=== PATIENT | female | born 1940 | race Caucasian/White ===

== ENCOUNTER 2022-03-11 09:15 | Outpatient (CLI) | payer MEDICARE, OTHER, SELFPAY ==
[2022-03-11 10:25] LABS: Anion Gap 9 mmol/L (8-16); Blood Urea Nitrogen 17 mg/dL (7-17); Calcium 9.2 mg/dL (8.4-10.2); Carbon Dioxide 28 mmol/L (22-30); Chloride 103 mmol/L (98-107); Estimated Glomerular Filt Rate 53; Glucose 95 mg/dL (65-110); Potassium 4.3 mmol/L (3.4-5.0); Sodium 140 mmol/L (137-145)
== END 2022-03-11 09:16 | disposition home or self-care (01) ==
LOC: ANHLAB 09:26
PROVIDERS: PCP Family Medicine; Visit Provider Nurse Practitioner Family
DX: Z13.1 Encounter for screening for diabetes mellitus (principal); Z13.29 Encounter for screening for other suspected endocrine disorder
CPT/HCPCS: 36415; 80048

== ENCOUNTER 2022-06-03 11:30 | Outpatient (CLI) | payer MEDICARE, OTHER, SELFPAY ==
[2022-06-03 11:59] LABS: Anion Gap 8 mmol/L (8-16); Blood Urea Nitrogen 19 mg/dL (7-17); Carbon Dioxide 25 mmol/L (22-30); Chloride 104 mmol/L (98-107); Estimated Glomerular Filt Rate 53; Glucose 97 mg/dL (65-110); Potassium 4.1 mmol/L (3.4-5.0); Sodium 137 mmol/L (137-145)
== END 2022-06-03 11:31 | disposition home or self-care (01) ==
PROVIDERS: PCP Family Medicine; Visit Provider Nurse Practitioner Family
DX: N28.9 Disorder of kidney and ureter, unspecified (principal)
CPT/HCPCS: 36415; 80048

== ENCOUNTER 2022-09-09 10:10 | Outpatient (CLI) | payer MEDICARE, OTHER, SELFPAY ==
[2022-09-09 10:57] LABS: Anion Gap 6 mmol/L (8-16); Blood Urea Nitrogen 15 mg/dL (7-17); Carbon Dioxide 29 mmol/L (22-30); Chloride 106 mmol/L (98-107); Estimated Glomerular Filt Rate 48; Glucose 82 mg/dL (65-110); Potassium 4.2 mmol/L (3.4-5.0); Sodium 141 mmol/L (137-145)
== END 2022-09-09 10:11 | disposition home or self-care (01) ==
PROVIDERS: PCP Family Medicine; Visit Provider Nurse Practitioner Family
DX: N28.9 Disorder of kidney and ureter, unspecified (principal)
CPT/HCPCS: 36415; 80048

== ENCOUNTER 2022-12-17 13:27 | Outpatient (CLI) | payer MEDICARE, OTHER, SELFPAY ==
[2022-12-17 13:49] LABS: Anion Gap 5 mmol/L (8-16); Blood Urea Nitrogen 13 mg/dL (7-17); Calcium 9.3 mg/dL (8.4-10.2); Carbon Dioxide 28 mmol/L (22-30); Chloride 102 mmol/L (98-107); Estimated Glomerular Filt Rate 60; Glucose 90 mg/dL (65-110); Potassium 4.1 mmol/L (3.4-5.0); Sodium 135 mmol/L (137-145)
== END 2022-12-17 13:28 | disposition home or self-care (01) ==
PROVIDERS: PCP Family Medicine; Visit Provider Nurse Practitioner Family
DX: N28.9 Disorder of kidney and ureter, unspecified (principal)
CPT/HCPCS: 36415; 80048

== ENCOUNTER 2023-03-21 12:52 | Outpatient (CLI) | payer MEDICARE, OTHER, SELFPAY ==
[2023-03-21 13:35] LABS: Anion Gap 4 mmol/L (8-16); Blood Urea Nitrogen 16 mg/dL (7-17); Carbon Dioxide 27 mmol/L (22-30); Chloride 103 mmol/L (98-107); Estimated Glomerular Filt Rate 60; Glucose 85 mg/dL (65-110); Potassium 4.3 mmol/L (3.4-5.0); Sodium 134 mmol/L (137-145)
== END 2023-03-21 12:53 | disposition home or self-care (01) ==
PROVIDERS: PCP Family Medicine; Visit Provider Nurse Practitioner Family
DX: N28.9 Disorder of kidney and ureter, unspecified (principal)
CPT/HCPCS: 36415; 80048

== ENCOUNTER 2023-05-28 11:46 | Outpatient (CLI) | payer MEDICARE, OTHER, SELFPAY ==
[2023-05-28 12:16] LABS: Anion Gap 9 mmol/L (8-16); Blood Urea Nitrogen 16 mg/dL (7-17); Carbon Dioxide 24 mmol/L (22-30); Chloride 105 mmol/L (98-107); Estimated Glomerular Filt Rate 53; Glucose 75 mg/dL (65-110); Sodium 138 mmol/L (137-145)
== END 2023-05-28 11:47 | disposition home or self-care (01) ==
LOC: ANHLAB 11:48
PROVIDERS: PCP Family Medicine; Visit Provider Nurse Practitioner Family
DX: E87.1 Hypo-osmolality and hyponatremia (principal)
CPT/HCPCS: 36415; 80048

== ENCOUNTER 2023-09-12 11:26 | Outpatient (CLI) | payer MEDICARE, OTHER, SELFPAY ==
--- NOTE | ~2023-09-12 | XR_ITS ---
AP view of the pelvis and AP and lateral views of the left hip Clinical history: Pain Findings: No acute fracture or dislocation is seen. There is severe left hip joint osteoarthritis, joel int space narrowing and moderate disc versus change, mild remodeling of the femoral head. Right hip j oint space is preserved. Soft tissues are unremarkable. Impression: Severe left hip joint osteoarthritis. Reviewed, dictated and finalized at location M. S AND SERVICE SUPERVISOR Impression: Severe left hip joint osteoarthritis.
[2023-09-12 12:07] LABS: Basophils Absolute Auto 0.1 K/mm3 (0.0-0.1); Eosinophils Absolute Auto 0.2 K/mm3 (0-0.3); Eosinophils Percent Auto 4.5 % (0-4.4); Hemoglobin 8.3 g/dL (12.0-15.0); Immature Granulocyte Absolute 0.02 K/mm3 (0.00-0.031); Immature Granulocyte Percent A 0.4 % (0-0.5); Lymphocytes Absolute Auto 1.42 K/mm3 (0.9-3.2); Lymphocytes Percent Auto 27.8 % (18.3-44.2); Mean Corpuscular HGB Conc 28.6 g/dl (32-36); Mean Corpuscular Hemoglobin 22.4 pg (26-34); Mean Corpuscular Volume 78.2 fl (80-100); Mean Platelet Volume 9.6 fl (7.4-10.4); Monocytes Absolute Auto 0.5 K/mm3 (0.1-0.6); Monocytes Percent Auto 10.4 % (2.6-8.5); Neutrophils Absolute Auto 2.9 K/mm3 (1.3-6.7); Neutrophils Percent Auto 55.9 % (45.5-73.1); Platelet Count Result 471 k/mm3 (150-375); Red Blood Count 3.71 M/mm3 (4.2-5.4); Red Cell Distribution Width 17.5 % (11.5-14.5); White Blood Count 5.1 K/mm3 (4.5-10.0)
[2023-09-12 12:17] LABS: Alanine Aminotransferase 17 U/L (6-35); Alkaline Phosphatase 89 U/L (38-126); Anion Gap 7 mmol/L (8-16); Aspartate Amino Transferase 32 U/L (14-36); Bilirubin,Total 0.2 mg/dL (0.2-1.3); Blood Urea Nitrogen 23 mg/dL (7-17); Calcium 9.2 mg/dL (8.4-10.2); Carbon Dioxide 26 mmol/L (22-30); Chloride 105 mmol/L (98-107); Cholesterol 216 mg/dL (0-200); Estimated Glomerular Filt Rate 60; Glucose 97 mg/dL (65-110); HDL Direct 61 mg/dL; Potassium 4.7 mmol/L (3.4-5.0); Sodium 138 mmol/L (137-145); Triglycerides 76 mg/dL (<150)
[2023-09-12 12:28] LABS: LDL Cholesterol Direct 131 mg/dL
== END 2023-09-12 11:27 | disposition home or self-care (01) ==
PROVIDERS: PCP Family Medicine; Visit Provider Physician Assistant Medical
DX: E78.5 Hyperlipidemia, unspecified (principal); E87.1 Hypo-osmolality and hyponatremia; N28.9 Disorder of kidney and ureter, unspecified; Z13.1 Encounter for screening for diabetes mellitus; Z13.29 Encounter for screening for other suspected endocrine disorder; G89.29 Other chronic pain; M16.12 Unilateral primary osteoarthritis, left hip
CPT/HCPCS: 36415; 73502; 80053; 80061; 84443; 85025

== ENCOUNTER 2023-09-16 12:56 | Outpatient (CLI) | payer MEDICARE, OTHER, SELFPAY ==
[2023-09-16 13:52] LABS: Iron 29 ug/dL (37-170); Percent Iron Saturation 7 % (20-50)
== END 2023-09-16 12:57 | disposition home or self-care (01) ==
LOC: ANHLAB 12:57
PROVIDERS: PCP Family Medicine; Visit Provider Physician Assistant Medical
DX: D50.9 Iron deficiency anemia, unspecified (principal)
CPT/HCPCS: 36415; 83540; 83550

== ENCOUNTER 2023-10-10 13:39 | Outpatient (CLI) | payer MEDICARE, OTHER, SELFPAY ==
[2023-10-10 14:54] LABS: Basophils Absolute Auto 0.1 K/mm3 (0.0-0.1); Basophils Percent Auto 1.5 % (0.2-1.2); Eosinophils Absolute Auto 0.2 K/mm3 (0-0.3); Eosinophils Percent Auto 4.8 % (0-4.4); Hematocrit 34.8 % (37.0-47.0); Hemoglobin 10.3 g/dL (12.0-15.0); Immature Granulocyte Absolute 0.01 K/mm3 (0.00-0.031); Immature Granulocyte Percent A 0.2 % (0-0.5); Lymphocytes Absolute Auto 1.55 K/mm3 (0.9-3.2); Mean Corpuscular HGB Conc 29.6 g/dl (32-36); Mean Corpuscular Hemoglobin 26.3 pg (26-34); Mean Platelet Volume 9.8 fl (7.4-10.4); Monocytes Absolute Auto 0.5 K/mm3 (0.1-0.6); Monocytes Percent Auto 11.4 % (2.6-8.5); Neutrophils Absolute Auto 2.2 K/mm3 (1.3-6.7); Neutrophils Percent Auto 48.1 % (45.5-73.1); Platelet Count Result 367 k/mm3 (150-375); Red Blood Count 3.91 M/mm3 (4.2-5.4); Red Cell Distribution Width 25.3 % (11.5-14.5); White Blood Count 4.6 K/mm3 (4.5-10.0)
[2023-10-10 15:10] LABS: Hypochromasia 2+ (NORMAL); Ovalocytes 1+ (NORMAL); Platelet Estimate Adequate (Adequate); Schistocytes None Seen (NORMAL)
[2023-10-10 15:22] LABS: Iron 245 ug/dL (37-170)
[2023-10-10 15:32] LABS: Percent Iron Saturation 68 % (20-50)
== END 2023-10-10 13:40 | disposition home or self-care (01) ==
PROVIDERS: PCP Family Medicine; Visit Provider Physician Assistant Medical
DX: D50.9 Iron deficiency anemia, unspecified (principal)
CPT/HCPCS: 36415; 83540; 83550; 85025

== ENCOUNTER 2023-10-24 11:40 | Outpatient (CLI) | payer MEDICARE, OTHER, SELFPAY ==
[2023-10-24 12:09] LABS: Hemoglobin 12.1 g/dL (12.0-15.0)
--- NOTE | 2023-10-24 12:16 | ECG_ITS ---
Measurements Intervals [place] Rate: 75 P: 20 FL: 128 QRS: -21 QRSD: 98 T: 74 QT: 388 QTc: 434 Interpretive Statements SINUS RHYTHM DELAYED PRECORDIAL R/S TRANSITION NONSPECIFIC ST & T-WAVE ABNORMALITY- LAT/HIGH LAT LEADS BORDERLINE ECG NO PREVIOUS ECG AVAILABLE FOR COMPARISON Electronically Signed On 10-24-2023 12:48:36 JET WORKER by Josh Mustafa D.O.
[2023-10-24 12:27] LABS: Albumin Level 4.4 g/dL (3.5-5.1); Estimated Glomerular Filt Rate 60; Glucose 116 mg/dL (65-110)
== END 2023-10-24 11:41 | disposition home or self-care (01) ==
PROVIDERS: PCP Family Medicine; Visit Provider Orthopaedic Surgery
DX: M16.12 Unilateral primary osteoarthritis, left hip (principal); Z13.1 Encounter for screening for diabetes mellitus; E87.1 Hypo-osmolality and hyponatremia; N28.9 Disorder of kidney and ureter, unspecified
CPT/HCPCS: 36415; 82040; 82565; 82947; 85014; 85018; 93005

== ENCOUNTER 2023-11-26 11:49 | Outpatient (CLI) | payer MEDICARE, OTHER, SELFPAY ==
[2023-11-26 13:18] LABS: Basophils Absolute Auto 0.1 K/mm3 (0.0-0.1); Basophils Percent Auto 0.9 % (0.2-1.2); Eosinophils Absolute Auto 0.1 K/mm3 (0-0.3); Eosinophils Percent Auto 2.3 % (0-4.4); Hematocrit 37.5 % (37.0-47.0); Hemoglobin 11.6 g/dL (12.0-15.0); Immature Granulocyte Absolute 0.02 K/mm3 (0.00-0.031); Immature Granulocyte Percent A 0.4 % (0-0.5); Lymphocytes Absolute Auto 1.51 K/mm3 (0.9-3.2); Lymphocytes Percent Auto 26.8 % (18.3-44.2); Mean Corpuscular HGB Conc 30.9 g/dl (32-36); Mean Corpuscular Hemoglobin 29.2 pg (26-34); Mean Corpuscular Volume 94.5 fl (80-100); Monocytes Absolute Auto 0.5 K/mm3 (0.1-0.6); Monocytes Percent Auto 9.6 % (2.6-8.5); Neutrophils Absolute Auto 3.4 K/mm3 (1.3-6.7); Platelet Count Result 370 k/mm3 (150-375); Red Blood Count 3.97 M/mm3 (4.2-5.4); Red Cell Distribution Width 17.4 % (11.5-14.5); White Blood Count 5.6 K/mm3 (4.5-10.0)
[2023-11-26 13:34] LABS: Urine Cotinine NEGATIVE
[2023-11-26 13:53] LABS: Anion Gap 8 mmol/L (4-12); Blood Urea Nitrogen 17 mg/dL (7-17); Calcium 9.7 mg/dL (8.4-10.2); Carbon Dioxide 26 mmol/L (22-30); Chloride 106 mmol/L (98-107); Estimated Glomerular Filt Rate > 60; Glucose 89 mg/dL (65-110); Potassium 4.2 mmol/L (3.4-5.0); Sodium 140 mmol/L (137-145)
[2023-11-26 14:48] LABS: MRSA (PCR) NOT DETECTED (NOT DETECTE)
[2023-11-26 18:57] LABS: Hemoglobin A1C 4.4 % (<5.7)
== END 2023-11-26 11:50 | disposition home or self-care (01) ==
LOC: ANHSURGERY 11:54
PROVIDERS: Anesthesiology; PCP Family Medicine; Visit Provider Orthopaedic Surgery
DX: M16.12 Unilateral primary osteoarthritis, left hip (principal); E11.9 Type 2 diabetes mellitus without complications; Z01.818 Encounter for other preprocedural examination
CPT/HCPCS: 36415; 80048; 80307; 83036; 85025; 87641

== ENCOUNTER 2023-12-18 00:36 | Day surgery (SDC) | payer MEDICARE, OTHER, SELFPAY ==
--- NOTE | 2023-11-26 10:59 | PC.NURSE ---
PRE-OP INSTRUCTIONS, PLEASE READ CAREFULLY Report to the Outpatient Waiting Room, entrance under the green pavilion located off [facility], at time _0600_ on date _12/18/23_. Planned Procedure Time: _0730_. PACK A SMALL OVERNIGHT BAG AND LEAVE IN THE CAR ALONG WITH YOUR WALKER Time changes happen often and if your time is changed the preop area will call you the afternoon before. - You and your visitor will be asked to self-screen and do not enter if you have any COVID symptoms. - A mask is optional within the hospital at this time. -VISITING HOURS 8AM-8PM Patients may have clear liquids (water, carbonated beverages, clear teas, apple juice) until 3 hours prior to surgery (0430 AM) with a maximum of 20 ounces. - No food from midnight until time of surgery Take the following medications with a SIP of water the morning of surgery: _TYLENOL IF NEEDED_ DO NOT STOP ANY OF YOUR OTHER PRESCRIPTION MEDICATIONS PRIOR TO SURGERY ?EXCEPT THE FOLLOWING Medications to discontinue per DR. LARRY - _ASPIRIN & ALEVE 7 DAYS PRIOR TO SURGERY, Date to take last dose 12/10/23 Medications to discontinue per ANESTHESIA - _MULTIVITAMIN 3 DAYS PRIOR TO SURGERY, Date to take last dose 12/14/23_ Please no make-up, nail kyrgyz, hairspray, perfume, deodorant, or body powder the day of surgery. No jewelry (including any body piercings) or valuables the day of surgery, leave them at home. Please take a shower or bath the night before, or the morning of, surgery with an antibacterial soap. Wear comfortable, loose fitting clothing. - Jewelry must be removed prior to entering the operating room. Rings and piercings that are not removed may be cut off. - The hospital will not accept responsibility for valuables. - Please leave all valuables, including medications, at home the day of surgery. If you are going home after surgery, a licensed auto crane driver must drive you home. - NO public transportation without another adult if you receive anesthesia. - We recommend that an adult stay with you for 24 hours following discharge. - We also recommend that you do not drive, make important decision, drink alcoholic beverages, or take any drugs that were not prescribed by your health care provider for at least 24 hours after your discharge time. Follow any additional instructions given to you from your surgeon. If you or anyone in your household have experienced Covid symptoms in the past week, please notify your surgeon or the nurse liaison at the phone number below for possible testing. Instructions given to _PATIENT & SPOUSE_and asked if any additional questions and then verbalized understanding. Patient advised to call surgeon office or pre surgery nurse liaison [phone] if any additional questions.
[2023-11-26 12:12] VITALS: BP 174/56; PULSE 68; RESP 16; TEMP 37.1; O2SAT 100; BMI 22.4
--- NOTE | 2023-12-17 12:44 | WPDANESEPPF ---
Anes - Initial Pre Proc Eval Procedure: Operation Date: 12/18/23 07:30 Proposed Procedures p Left Total Hip Arthroplasty - Eugenio Lopez MD Date/Time: 12/17/23 12:44 Surgeon: Eugenio Lopez MD Pre Op Diagnosis: primary oa left hip Patient Data Age: 83 Gender: F Height: 1.57 m Weight: 55.7 kg Last Vital Signs Temp 37.1 C 11/26/23 12:12 Pulse 68 11/26/23 12:12 Resp 16 11/26/23 12:12 BP 174/56 H 11/26/23 12:12 Pulse Ox 100 11/26/23 12:12 O2 Del Method Room Air 11/26/23 12:12 Allergies Allergy/AdvReac Type Severity Reaction Status Date / Time acetaminophen Allergy Hives Verified 12/18/23 06:48 [From Excedrin Migraine] aspirin Allergy Hives Verified 12/18/23 06:48 [From Excedrin Migraine] caffeine Allergy Hives Verified 12/18/23 06:48 [From Excedrin Migraine] Home Medications Medication Instructions Recorded Confirmed Type nolwnvav-tvztuvd-tdgz-lutein tablet 1 tablet PO DAILY #90 tabs 08/27/21 11/26/23 Rx ferrous sulfate 325 mg (65 mg 325 mg PO DAILY #90 tabs 10/11/23 11/26/23 Rx iron) tablet dapagliflozin propanediol 10 mg 10 mg PO QAM #90 tabs 11/04/23 11/26/23 Rx tablet (Farxiga) omeprazole magnesium 20 mg 20 mg PO DAILY #90 tabs 11/04/23 11/26/23 Rx tablet,delayed release (Prilosec OTC) acetaminophen 500 mg tablet 1,000 mg PO Q6H PRN Pain 11/26/23 11/26/23 History aspirin 81 mg capsule 81 mg PO DAILY 11/26/23 11/26/23 History naproxen sodium 220 mg tablet 220 mg PO BID PRN Pain 11/26/23 11/26/23 History (Aleve) zinc 50 mg tablet 50 mg PO DAILY 11/26/23 11/26/23 History Patient hx anesthesia problems: none Family hx anesthesia problems: none Results Review: All pre-operative results and documents have been reviewed as part of the pre-operative evaluation. [facility] Past Medical History Medical History (Updated 12/18/23 @ 06:48 by Matt Daniels DO) Cataract (lens) fragments in eye following cataract surgery, bilateral Colon cancer (~1997) GERD (gastroesophageal reflux disease) Kidney disease Surgical History Surgical History History of appendectomy (~1996) History of dilatation and curettage (~1977) Family History Family History Mother Aneurysm Father , drowning No problems noted. Sibling Metastatic bone cancer Social History Social History Smoking status: Never smoker Second hand tobacco smoke exposure: No Additional smoking assessment comments: PT DENIES ALL FORMS OF TOBACCO USE Alcohol intake: never Substance use: never Substance use type: does not use Do You Feel Safe in your Home?: Yes Lack of Transportation: No Lack of Food: Never True Current Housing: I Have Housing Concerned About Future Housing: No Difficulty Paying Gas/Electric Bills: No Difficulty Paying for Meds: No Currently Unemployed: No Education: High School Diploma/GED Difficulty w/ Childcare or Family Care: No Living arrangements: with family Occupation/Education: retired Gender identity (if verbalized by the patient): Female Sexual Orientation (if Verbalized by the Patient): Straight or Heterosexual Spiritual care concerns: No Agree to blood products: Yes Anes - Eval Final PreProcedure Day of Procedure 12/17/23 12:44 Patient weight: normal Heart: regular rate and rhythm Lungs: clear to auscultation and normal air movement Airway: Mallampati scale class II Neurological: alert and oriented Last oral intake: >/= 8 hours ASA classification: II Emergent: no Anesthetic plan: proceed Anesthesia type and monitoring: general ETT and standard monitoring Results Review: All pre-operative results and documents have been reviewed as part of the pre-operative evaluation. Inform
[2023-12-18] VITALS (12 sets, daily range): BP systolic 119–194; BP diastolic 46–71; PULSE 62–74; RESP 8–20; TEMP 36.2–37.1; O2SAT 98–100
--- NOTE | ~2023-12-18 | XR_ITS ---
EXAMINATION: XR hip LT min 2V DATE: 12/18/2023 09:37 INDICATION: Left total hip arthroplasty TECHNIQUE: 2 views left hip FINDINGS: There is a left total hip arthroplasty in expected position. Subcutaneous gas with soft ti ssue swelling are consistent with recent surgery. IMPRESSION: 1. Recent left total hip arthroplasty. Reviewed, dictated and finalized at location B.
[2023-12-18] MEDS: ACETAMINOPHEN 500 MG TABLET 1000 MG PO (07:00)
[2023-12-18] MEDS: LACTATED RINGERS 1,000 ML 30 ML IV CONT (07:00)
[2023-12-18] MEDS: TRANEXAMIC ACID 1,000MG/ISO100 1,000 MG/100 ML BAG 200 MG IVPB (07:00)
--- NOTE | 2023-12-18 07:04 | WPDHPUPDATE1 ---
History and Physical Update Update Date/Time: 12/18/23 07:04 History and Physical has been reviewed, including an updated exam of the patient. There are NO changes in the patient's condition. Risks, benefits, and alternatives have been discussed and questions answered. Patient agrees to proceed with procedure.
[2023-12-18] MEDS: ceFAZolin 2 GM/D5W 50 ML 2 GM/50 ML BAG IVPB ×3 (07:24→23:14)
[2023-12-18] MEDS: SODIUM CHLORIDE 0.9% IV 37.7 ML, MORPHINE SULFATE INJ (*CRX) 2 MG, ROPivacaine HCL 1% 2... INFILTRATE (08:03)
--- NOTE | 2023-12-18 09:28 | W.PM.PROC2 ---
Procedure Note - Detailed Date of Procedure 12/18/23 Pre-op Diagnosis primary oa left hip Post-op Diagnosis Same Procedure Performed Left Total Hip Arthroplasty Surgeon Eugenio Lopez MD Eligibility Examiner Trinity Addison PA-C Anesthesia General Findings Small stature. Satisfactory bone quality. Description of Procedure The patient was given preoperative antibiotics. A general anesthetic was administered. The patient was carefully placed in the lateral decubitus position on the PEG board. The shoulders and hips were carefully positioned for component and leg length positioning reference. The hip was prepped and draped in the usual sterile fashion. A longitudinal incision was created over the posterior aspect of the greater trochanter. Careful dissection was brought down through the deep fascia with electrocautery. A minimally invasive optimized posterior approach to the hip was performed. The short external rotators and capsule were taken down in an L-shaped capsulotomy. The tissue was tagged for later repair using number 2 high strength suture. The femoral neck was measured and taken in situ. The femoral head was removed. The acetabulum was carefully exposed. The inferior capsule was released. The labrum was resected. The acetabulum was sequentially reamed to the intended cup size. The cup was impacted into position with excellent press-fit. Typical anatomic landmarks, including the bony contact points as well as the inferior transverse acetabular ligament were used to confirm cup positioning with preoperative templating. Attention was turned to the femur, which was carefully exposed. The hip was reamed and then broached sequentially. Excellent press-fit was obtained with the broach. The hip was trialed. Measurements were utilized, including the lesser trochanter as well as the center of the femoral head and the tip of the trochanter, and excellent assessment of the offset and leg lengths were confirmed. The real component was impacted into position. Trialing confirmed appropriate leg length and offset with soft tissue balancing as well apparent feel of the leg, both at the knee and the heel. Soft tissues were assessed using the the iliotibial band. Reduction of the posterior capsule and external rotators were also used as a secondary assessment. The hip was copiously irrigated with pulsatile lavage periodically throughout the procedure. The real components were then assembled and reduced. The hip was stable throughout typical maneuvers, including extension, external rotation to 70 degrees, the position of sleep as well as flexion to 90 degrees with internal rotation past 35 degrees. The shake test confirmed stability without impingement. Osteophytes were removed as necessary. The short external rotators and capsule were repaired back to the posterior trochanter through drill holes. The deep fascia was repaired with running number 2 barbed suture, followed by 2-0 Stratafix suture and 3-0 Stratafix suture in the dermis. Steri-Strips were placed on the skin, followed by a sterile occlusive dressing. There were no complications. Meticulous hemostasis was maintained with the AquaMantys device. The patient was brought to the recovery room in stable condition. There were no complications. Physician hotel assistant manager, Trinity Addison PA-C, required for surgery; including patient positioning, draping, tissue retraction, maintaining instrument position, hip dislocation/ relocation, wound closure, and dressing placement. Implants The Accolade II hip stem, 127 degree size 3 , was utilized with excellent press-fit. The 46 mm Trident II acetabular component was impacted with excellent press-fit stability. Standard polyethylene liner the +4, 32 mm Biolox ceramic femoral head was utilized. Estimated Blood Loss 200 Drains No Packing No Pathology None sent Complications No immediate complications Condition Stable Disposition PACU [facility] Surge
[2023-12-18 09:34] LABS: Glucose Point of Care 118 mg/dl (65-105)
[2023-12-18] MEDS: fentaNYL CITRATE INJ (*CRX) 100 MCG/2 ML VIAL 25 MCG IV PUSH ×4 (10:15→10:29)
[2023-12-18] MEDS: oxyCODONE HCL (*CRX) 2.5 MG TAB IR PO (13:34)
[2023-12-18] MEDS: ACETAMINOPHEN 325 MG TABLET 650 MG PO ×3 (13:34→23:14)
--- NOTE | 2023-12-18 14:17 | PC.NURSE ---
This patient, Maryjane Menchaca, was admitted to Medical Room 343-01. Patient/family oriented to hospital policies and general routines including ID bracelet, bed and alarms, visiting hours, pain management, procedures, bathroom and other care routines, personal items, smoking policy, room service/diet, and visiting hours. Information on how to activate the Rapid Response Team has been discussed. Patient/Family are encouraged to report perceived risks to care and to ask questions if they do not understand what they are told or what they should do.
[2023-12-18] MEDS: SENNA/DOCUSATE SODIUM TABLET 2 TAB PO (17:05)
[2023-12-18] MEDS: oxyCODONE HCL (*CRX) 5 MG TAB IR PO (20:27)
[2023-12-18] MEDS: ASPIRIN 81 MG ENTERIC TABLET PO (20:27)
[2023-12-18] MEDS: SODIUM CHLORIDE 0.9% IV 250 ML 20 ML (23:13)
[2023-12-19 00:22] VITALS: BP 142/54; PULSE 72; RESP 20; TEMP 36.3; O2SAT 98
[2023-12-19 05:31] LABS: Basophils Percent Auto 0.4 % (0.2-1.2); Eosinophils Absolute Auto 0.1 K/mm3 (0-0.3); Eosinophils Percent Auto 0.9 % (0-4.4); Hematocrit 32.3 % (37.0-47.0); Hemoglobin 10.1 g/dL (12.0-15.0); Immature Granulocyte Absolute 0.03 K/mm3 (0.00-0.031); Immature Granulocyte Percent A 0.4 % (0-0.5); Lymphocytes Absolute Auto 0.98 K/mm3 (0.9-3.2); Lymphocytes Percent Auto 13.1 % (18.3-44.2); Mean Corpuscular HGB Conc 31.3 g/dl (32-36); Mean Corpuscular Volume 95.8 fl (80-100); Mean Platelet Volume 8.6 fl (7.4-10.4); Monocytes Absolute Auto 0.7 K/mm3 (0.1-0.6); Monocytes Percent Auto 9.6 % (2.6-8.5); Neutrophils Absolute Auto 5.6 K/mm3 (1.3-6.7); Neutrophils Percent Auto 75.6 % (45.5-73.1); Platelet Count Result 276 k/mm3 (150-375); Red Blood Count 3.37 M/mm3 (4.2-5.4); Red Cell Distribution Width 14.5 % (11.5-14.5); White Blood Count 7.5 K/mm3 (4.5-10.0)
[2023-12-19 05:40] VITALS: BP 133/52; PULSE 70; RESP 18; TEMP 36.7; O2SAT 97
[2023-12-19 05:45] LABS: Anion Gap 3 mmol/L (4-12); Blood Urea Nitrogen 22 mg/dL (7-17); Calcium 9.1 mg/dL (8.4-10.2); Carbon Dioxide 25 mmol/L (22-30); Chloride 109 mmol/L (98-107); Estimated CRCL calculation 30 ml/min; Estimated Glomerular Filt Rate 53; Glucose 104 mg/dL (65-110); Potassium 3.7 mmol/L (3.4-5.0); Sodium 137 mmol/L (137-145)
--- NOTE | 2023-12-19 07:17 | P.PNAN_ITS ---
Anes - Prog Note Post-Op Date/Time: 12/19/23 07:17 Cardiovascular status: normal Respiratory status: normal Airway patency: baseline Mental status: baseline Post-Op hydration status: normal Vital Signs: Last Vital Signs Temp 97.4 F L 12/19/23 00:22 Pulse 72 12/19/23 00:22 Resp 20 12/19/23 00:22 BP 142/54 H 12/19/23 00:22 Pulse Ox 98 12/19/23 00:22 O2 Del Method Room Air 12/18/23 13:28 O2 Flow Rate 6 12/18/23 09:55 Pain Score (VAS): 3 I/O: Intake & Output 12/18/23 12/18/23 12/19/23 15:59 23:59 07:59 Intake Total 100 790 Balance 100 790 Laboratory Tests 12/19/23 05:22 12/19/23 05:22 12/18/23 12/19/23 09:30 05:22 WBC 7.5 RBC 3.37 L Hgb 10.1 L Hct 32.3 L MCV 95.8 MCH 30.0 MCHC 31.3 L RDW 14.5 Plt Count 276 MPV 8.6 Immature Gran % (Auto) 0.4 Neut % (Auto) 75.6 H Lymph % (Auto) 13.1 L [place] % (Auto) 9.6 H Eos % (Auto) 0.9 Baso % (Auto) 0.4 Lymph # (Auto) 0.98 [place] # (Auto) 0.7 H Eos # (Auto) 0.1 Baso # (Auto) 0.0 Abs Immat Gran (auto) 0.03 Absolute Neuts (auto) 5.6 Absolute Nucleated RBC 0.000 Nucleated RBC % 0.0 Sodium 137 Potassium 3.7 Chloride 109 H Carbon Dioxide 25 Anion Gap 3 L BUN 22 H Creatinine 1.00 Estim Creat Clear Calc 30 Estimated GFR 53 L Glucose 104 POC Capillary Glucose 118 H Calcium 9.1 Post-procedural complaints: none Patient Feedback: Patient satisfied with anesthetic care.
[2023-12-19 08:22] VITALS: BP 128/50; PULSE 75; RESP 18; TEMP 36.8; O2SAT 98
[2023-12-19] MEDS: ceFAZolin 2 GM/D5W 50 ML 2 GM/50 ML BAG IVPB (08:23)
[2023-12-19] MEDS: SENNA/DOCUSATE SODIUM TABLET 2 TAB PO (08:24)
[2023-12-19] MEDS: polyethylene glycoL 3350 17 GM POWD.PACK PO (08:25)
[2023-12-19] MEDS: EMPAGLIFLOZIN 25 MG TABLET PO (08:25)
[2023-12-19] MEDS: PANTOPRAZOLE 40 MG TABLET PO (08:25)
[2023-12-19] MEDS: ASPIRIN 81 MG ENTERIC TABLET PO (08:25)
[2023-12-19] MEDS: FERROUS SULFATE 325 MG TABLET DR PO (08:25)
--- NOTE | 2023-12-19 08:31 | PM.DS ---
DS: Admitting Diagnosis Discharge Date 12/19/23 Admitting Diagnosis Hip arthritis. DS: Discharge Diagnosis Discharge Diagnosis (1) Status post total hip replacement, left: Code(s): Z96.642 - Presence of left artificial hip joint Status: Acute Assessment and Plan: Postop day 1: Total hip arthroplasty. Patient tolerated procedure well. No complications. Pain manageable with pain medication. No numbness or tingling. We had a lengthy discussion regarding postoperative wound care, limitations, expectations, and exercises. Patient shows good understanding. Patient has had initial physical therapy and is tolerating it well. DVT prophylaxis: 81 mg baby aspirin b.i.d. for 14 days. Short frequent walks. Pain medication: Percocet. Patient has followup appointment with Dr. Lopez in 3 weeks DS: Summary Hospital Course Reason for hospitalization: Total hip arthroplasty Hospital Course: Patient tolerated procedure well. Has had initial PT/OT. Status at Discharge Functional status at discharge: uses cane/walker Overall status at discharge: patient is progressing back to baseline Time Spent with Patient Time attestation: Total time spent providing and/or coordinating discharge services: Exam Narrative: Thin 83 y/o female. Resting comfortably in chair. Wearing compression socks bilaterally. Dressing dry and intact with no drainage. Mild swelling. No ecchymosis. No erythema. No hematoma. Range of motion limited due to pain. Calf nontender. Thigh nontender. Neurologic status intact. No varicosities. Distal pulses palpable. DS: Data Data Completed and Pending Labs on day of discharge: Labs from last 24 hours 12/19/23 12/18/23 05:22 09:30 WBC 7.5 RBC 3.37 L Hgb 10.1 L Hct 32.3 L MCV 95.8 MCH 30.0 MCHC 31.3 L RDW 14.5 Plt Count 276 MPV 8.6 Immature Gran % (Auto) 0.4 Neut % (Auto) 75.6 H Lymph % (Auto) 13.1 L [place] % (Auto) 9.6 H Eos % (Auto) 0.9 Baso % (Auto) 0.4 Lymph # (Auto) 0.98 [place] # (Auto) 0.7 H Eos # (Auto) 0.1 Baso # (Auto) 0.0 Abs Immat Gran (auto) 0.03 Absolute Neuts (auto) 5.6 Absolute Nucleated RBC 0.000 Nucleated RBC % 0.0 Sodium 137 Potassium 3.7 Chloride 109 H Carbon Dioxide 25 Anion Gap 3 L BUN 22 H Creatinine 1.00 Estim Creat Clear Calc 30 Estimated GFR 53 L Glucose 104 POC Capillary Glucose 118 H Calcium 9.1 Discharge Plan Discharge Patient Disposition: Home, Self-Care Discharge Instructions: See green instruction sheets Stand Alone Forms: General Discharge Instructions Follow-up/Referrals: Trinity Addison PA [Physician Loan Services Professional] - Discharge Medications: New aspirin 81 mg tablet,delayed release (DR/EC) 81 mg PO BID 14 Days Qty: 28 0RF oxycodone-acetaminophen 5-325 mg tablet 1 - 2 tablet PO Q4-6H MDD 6 PRN (Reason: pain) Qty: 30 0RF Continued rwuwpovj-olyqgpg-gqgn-lutein Tablet 1 tablet PO DAILY Qty: 90 3RF zinc 50 mg Tablet 50 mg PO DAILY aspirin 81 mg Capsule 81 mg PO DAILY ferrous sulfate 325 mg (65 mg iron) tablet 325 mg PO DAILY Qty: 90 2RF Farxiga 10 mg tablet 10 mg PO QAM Qty: 90 3RF omeprazole magnesium [Prilosec OTC] 20 mg tablet,delayed release (DR/EC) 20 mg PO DAILY Qty: 90 3RF Held acetaminophen 500 mg Tablet 1,000 mg PO Q6H PRN (Reason: Pain) Hold Instructions: Resume on 01/01/24. No more than 3,000 mg in 24 hours. Pain meds have 325 mg in each pill. naproxen sodium [Aleve] 220 mg Tablet 220 mg PO BID PRN (Reason: Pain) Hold Instructions: Resume on 01/15/24. Hold while taking Meloxicam.
== END 2023-12-19 11:04 | disposition home or self-care (01) ==
LOC: ANHSURGERY 07:26 → ANH3MED 10:44
PROVIDERS: Physician Assistant Surgical; PCP Family Medicine; Visit Provider Orthopaedic Surgery
PROC: (CPT 27130; principal; 2023-12-18 07:30)
DX: M16.12 Unilateral primary osteoarthritis, left hip (principal); K21.9 Gastro-esophageal reflux disease without esophagitis; Z85.038 Personal history of other malignant neoplasm of large intestine; Z79.84 Long term (current) use of oral hypoglycemic drugs; Z79.82 Long term (current) use of aspirin
CPT/HCPCS: 27130; 36415; 73502; 80048; 82948; 85025; 86850; 86900; 86901; 97110; 97161; 97165; 97535; A9270; C1776; J0171; J0690; J1170; J1885; J2250; J2270; J2795; J3010; J7050; J7120

== ENCOUNTER 2023-12-24 17:43 | Inpatient (IN) | payer MEDICARE, OTHER, SELFPAY ==
--- NOTE | ~2023-12-24 | CT_ITS ---
EXAMINATION: CT abdomen pelvis w con DATE: 12/24/2023 20:35 INDICATION: Small bowel obstruction versus impaction TECHNIQUE: Computed tomography (CT) of the abdomen and pelvis was performed with 100 mL Omnipaque-350 intravenous contrast. Automated exposure control and iterative reconstruction technique were employe d. The dose-length product was 194.95 mGy-cm. COMPARISON: None FINDINGS: Calcified right lower lobe nodules consistent with old granulomatous disease. Heart size normal. Athe rosclerotic coronary artery calcification. No pericardial or pleural effusion. Small sliding-type hia everardo hernia. Liver, gallbladder, spleen, pancreas, bilateral adrenal glands and right kidney are dorothy l. Subcentimeter low-attenuation left renal cyst. Multiple dilated loops of small bowel measuring up to 3.7 cm in maximal diameter which extend to a transition point to decompressed distal ileum at the right anterior inferior pelvis. Prior bowel surgery with anastomotic suture line at the rectosigmoid junction. Bladder is normal. The uterus is not identified and has likely been surgically resected. Mi nimal either reactive or physiologic free fluid in the cul-de-sac. No abscess or free intraperitoneal gas. No pathologically enlarged abdominal or pelvic lymphadenopathy. Left total hip arthroplasty. Mi ld lumbar levocurvature with severe spondylosis. IMPRESSION: 1. Small bowel obstruction with transition point at the anteroinferior right pelvis. 2. Small sliding-type hiatal hernia. Reviewed, dictated and finalized at location A. IMPRESSION: 1. Small bowel obstruction with transition point at the anteroinferior right pe lvis. 2. Small sliding-type hiatal hernia.
--- NOTE | ~2023-12-24 | XR_ITS ---
EXAMINATION: XR abdomen gastric tube insert DATE: 12/24/2023 21:50 INDICATION: Nasogastric tube placement TECHNIQUE: A supine view of the abdomen and lower chest was obtained for evaluation of feeding tube placement. COMPARISON: CT dated 12/24/23 FINDINGS: Nasogastric tube tip in the body of the stomach with proximal side-port near the gastroesophageal agustin ction. Mildly dilated loops of small bowel in the left abdomen consistent with bowel obstruction seen on prior CT. There is some excreted contrast in bilateral renal collecting systems and ureters from the prior contrast enhanced CT. Visualized bilateral mid and lower lungs are clear. Heart size is nor mal. IMPRESSION: 1. Nasogastric tube tip in the body of the stomach. Consider advancement by [address] the proximal s neva-port below level of the gastroesophageal junction. Reviewed, dictated and finalized at location A. IMPRESSION: 1. Nasogastric tube tip in the body of the stomach. Consider advancement by [address] the proximal side-port below level of the gastroesophageal junction.
--- NOTE | ~2023-12-24 | XR_ITS ---
EXAMINATION: XR sm bowel follow through DATE: 12/25/2023 11:10 INDICATION: Small bowel obstruction. TECHNIQUE: Oral contrast was administered, and a time course of radiographs of the abdomen was obtain ed. Fluoroscopy of the small bowel was not performed. Fluoroscopy exposure time was 0 minutes. The to everardo number of images was 5. COMPARISON: CT abdomen and pelvis 12/24/2023 FINDINGS: The nasogastric tube tip is in the stomach. There are multiple dilated loops of small bowel. The dist al small bowel is decompressed. Transit time from the stomach to proximal colon was approximately 45 minutes. There is a total left hip arthroplasty. IMPRESSION: 1. Partial small bowel obstruction. Reviewed, dictated and finalized at location A.
[2023-12-24 17:48] VITALS: BP 142/61; PULSE 79; RESP 14; TEMP 36.1; O2SAT 100
--- NOTE | 2023-12-24 19:21 | ECG_ITS ---
SEE SCANNED COPY FOR CONFIRMED REPORT MTDD
[2023-12-24] MEDS: SODIUM CHLORIDE 0.9% IV 2,000 ML 999 ML IV CONT (19:34)
[2023-12-24] MEDS: ONDANSETRON INJ 4 MG/2 ML VIAL IV PUSH (19:35)
[2023-12-24 19:48] VITALS: BP 138/61; PULSE 80; RESP 16; O2SAT 100
[2023-12-24 19:50] LABS: Basophils Absolute Auto 0.1 K/mm3 (0.0-0.1); Basophils Percent Auto 0.5 % (0.2-1.2); Eosinophils Percent Auto 0.3 % (0-4.4); Hematocrit 38.2 % (37.0-47.0); Hemoglobin 12.5 g/dL (12.0-15.0); Immature Granulocyte Absolute 0.07 K/mm3 (0.00-0.031); Immature Granulocyte Percent A 0.8 % (0-0.5); Lymphocytes Absolute Auto 1.02 K/mm3 (0.9-3.2); Lymphocytes Percent Auto 11.2 % (18.3-44.2); Mean Corpuscular HGB Conc 32.7 g/dl (32-36); Mean Corpuscular Hemoglobin 30.3 pg (26-34); Mean Corpuscular Volume 92.7 fl (80-100); Mean Platelet Volume 9.1 fl (7.4-10.4); Monocytes Absolute Auto 0.8 K/mm3 (0.1-0.6); Monocytes Percent Auto 9.1 % (2.6-8.5); Neutrophils Absolute Auto 7.1 K/mm3 (1.3-6.7); Neutrophils Percent Auto 78.1 % (45.5-73.1); Platelet Count Result 504 k/mm3 (150-375); Red Blood Count 4.12 M/mm3 (4.2-5.4); Red Cell Distribution Width 13.5 % (11.5-14.5); White Blood Count 9.1 K/mm3 (4.5-10.0)
[2023-12-24 20:00] LABS: Alanine Aminotransferase 103 U/L (6-35); Albumin Level 4.7 g/dL (3.5-5.1); Alkaline Phosphatase 142 U/L (38-126); Anion Gap 20 mmol/L (4-12); Aspartate Amino Transferase 122 U/L (14-36); Bilirubin,Total 0.7 mg/dL (0.2-1.3); Blood Urea Nitrogen 28 mg/dL (7-17); Calcium 10.3 mg/dL (8.4-10.2); Carbon Dioxide 17 mmol/L (22-30); Chloride 101 mmol/L (98-107); Estimated CRCL calculation 35 ml/min; Estimated Glomerular Filt Rate 60; Glucose 140 mg/dL (65-110); Lipase 93 U/L (23-300); Potassium 3.7 mmol/L (3.4-5.0); Sodium 138 mmol/L (137-145)
[2023-12-24 20:00] LABS: Lactic Acid Reflex 2.5 mmol/L (0.7-2.0)
[2023-12-24 20:24] LABS: Appearance Urine Clear (Clear); Bacteria Urine None Seen /hpf; Bilirubin Urine Negative (Negative); Blood Urine Negative (Negative); Color Urine Yellow (Yellow); Glucose Urine UA 3+ mg/dL (Negative); Ketones Urine 3+ mg/dL (Negative); Leukocyte Esterase Ur Negative LEU/UL (Negative); Need Manual Microscopic Reviewed; Nitrate Urine Negative (Negative); Protein Urine 1+ mg/dL (Negative); RBC Urine 0-2 /hpf (0-2); Squamous Epithelial Cell Urine Occasional /hpf (Few); WBC Urine 0-5 /hpf (0-3)
[2023-12-24 20:25] LABS: Add Urine Microscopic? YES; Specific Grav Ur 1.034 (1.001-1.035)
--- NOTE | 2023-12-24 20:41 | PC.NURSE ---
Pt states nausea has resolved after medication administration.
--- NOTE | 2023-12-24 21:14 | ED.GENADULT ---
HPI - General Adult General Chief complaint: Abdominal Pain Stated complaint: conspitated since last friday Time Seen by Provider: 12/24/23 19:04 History of Present Illness HPI narrative: This is an 83-year-old female on pod 6 a left total hip replacement performed by Dr. Lopez. She has not had a bowel movement since procedure. Two days ago she has gas. She has persistent nausea vomiting abdominal distension and abdominal pain. No fevers chills chest pain or urinary symptoms. Patient tried Fleet enema earlier today with no success. She also tried senna but could not keep it down without vomiting. Related Data Home Medications Medication Instructions Recorded Confirmed acetaminophen 500 mg tablet 1,000 mg PO Q6H PRN Pain 11/26/23 11/26/23 aspirin 81 mg capsule 81 mg PO DAILY 11/26/23 11/26/23 naproxen sodium 220 mg tablet 220 mg PO BID PRN Pain 11/26/23 11/26/23 (Aleve) zinc 50 mg tablet 50 mg PO DAILY 11/26/23 11/26/23 Allergies Allergy/AdvReac Type Severity Reaction Status Date / Time acetaminophen Allergy Mild Hives Verified 12/18/23 07:40 [From Excedrin Migraine] aspirin Allergy Mild Hives Verified 12/18/23 07:40 [From Excedrin Migraine] caffeine Allergy Mild Hives Verified 12/18/23 07:40 [From Excedrin Migraine] PMFSH Past Medical History Medical History Cataract (lens) fragments in eye following cataract surgery, bilateral Colon cancer (~1997) GERD (gastroesophageal reflux disease) Kidney disease Surgical History Surgical History History of appendectomy (~1996) History of dilatation and curettage (~1977) Family History Family History Mother Aneurysm Father , drowning No problems noted. Sibling Metastatic bone cancer Social History Social History Smoking status: Never smoker Second hand tobacco smoke exposure: No Additional smoking assessment comments: PT DENIES ALL FORMS OF TOBACCO USE Alcohol intake: never Substance use: never Substance use type: does not use Do You Feel Safe in your Home?: Yes Lack of Transportation: No Lack of Food: Never True Current Housing: I Have Housing Concerned About Future Housing: No Difficulty Paying Gas/Electric Bills: No Difficulty Paying for Meds: No Currently Unemployed: No Education: High School Diploma/GED Difficulty w/ Childcare or Family Care: No Living arrangements: with family Occupation/Education: retired Gender identity (if verbalized by the patient): Female Sexual Orientation (if Verbalized by the Patient): Straight or Heterosexual Spiritual care concerns: No Agree to blood products: Yes Exam Narrative: APPEARANCE: No apparent distress. Head: atraumatic. EYES: EOMI, NOSE: Atraumatic NECK: Trachea midline RESPIRATORY: No increased rate of breathing CTAB CARDIOVASCULAR: RRR, ABDOMINAL: Abdomen is mildly distended/tender, no guarding or rebound MUSCULOSKELETAl: No obvious deformities NEURO: Alert. Moving 4/4 extremities SKIN:: Warm, dry. Normal color PSYCHIATRIC: Normal affect Course Vital Signs Vital signs: Vital Signs Temperature 96.9 F L 12/24/23 17:48 Pulse Rate 79 12/24/23 17:48 Respiratory Rate 14 12/24/23 17:48 Blood Pressure 142/61 H 12/24/23 17:48 Pulse Oximetry 100 12/24/23 17:48 Temperature 96.9 F L 12/24/23 17:48 Pulse Rate 80 12/24/23 19:48 Respiratory Rate 16 12/24/23 19:48 Blood Pressure 138/61 12/24/23 19:48 Pulse Oximetry 100 12/24/23 19:48 Medical Decision Making [facility] Narrative Medical decision making narrative: -Course: 83-year-old pod 6 from total hip replacement with abdominal pain, distension/vomiting. CT abdomen pelvis showed a small bowel
[2023-12-24] MEDS: PANTOPRAZOLE SODIUM IV 40 MG VIAL IV PUSH (21:57)
[2023-12-24] MEDS: KCL 20 MEQ/SW 100 ML 100 ML 50 MEQ IVPB (22:03)
[2023-12-24] MEDS: LACTATED RINGERS 1,000 ML 150 ML IV CONT (22:05)
[2023-12-24 22:44] VITALS: BP 158/56; PULSE 94; RESP 16; O2SAT 98
[2023-12-24 22:46] LABS: Reflex Lactic Acid Yes or No Add Lactic
[2023-12-24 23:46] VITALS: BMI 21.9
[2023-12-24 23:49] VITALS: BP 158/59; PULSE 91; RESP 18; TEMP 36.9; O2SAT 99; BMI 22.0
--- NOTE | 2023-12-25 00:04 | PC.NURSE ---
This patient, Maryjane Menchaca, was admitted to 3 Med Surg Room 307-02. Patient/family oriented to hospital policies and general routines including ID bracelet, bed and alarms, visiting hours, pain management, procedures, bathroom and other care routines, personal items, smoking policy, room service/diet, and visiting hours. Information on how to activate the Rapid Response Team has been discussed. Patient/Family are encouraged to report perceived risks to care and to ask questions if they do not understand what they are told or what they should do.
[2023-12-25 01:47] LABS: Lactic Acid 0.8 mmol/L (0.7-2.0)
[2023-12-25 05:25] VITALS: BP 154/60; PULSE 87; RESP 16; TEMP 37; O2SAT 96
--- NOTE | 2023-12-25 07:45 | PM.IMHP ---
H&P: HPI History of Present Illness Date/Time: 12/25/23 07:45 Chief Complaint: Abdominal pain Narrative: This is an 83 year old female with a significant past medical history of colon cancer, GERD, kidney disease, cataracts, appendectomy and who presented to the hospital with abdominal pain, nausea, vomiting, abdominal distention. Patient denies any fever, chills, diarrhea, abdominal pain, chest pain, shortness of breath. She reports that she just had a bowel movement and emesis. She states that she feels like she could have another bowel movement soon. Patient is POD 7 from a Left THR performed by Dr. Lopez and she reports that she has not had a bowel movement since before her surgery. Patient tried a Fleets enema and senna at home but was unsuccessful with both. She continued with worsening symptoms and came to the ED for further evaluation. Work up in the hospital includes an abdomen/pelvis CT which shown small bowel obstruction with transition point at the anteroinferior right pelvis, small sliding-type hiatal hernia. NG tube was inserted. KUB shown NGT in the body of the stomach.Initial labs revealed WBC 9.1, Plt count of 504, Bicarb 17, Anion gap 20 , lactic acid 2.5>0.8, Ca+ 10.3, AST 122, ALT 103, Alk phos 142, lipase 93. UA shown 1+ urine protein, 3+ glucose, 3+ ketones. EKG NSR with rate of 75. Patient received 2L NS, Zofran, Protonix, potassium, and started on LR at 150ml/hr while in the ED. General surgery was consulted and recommends supportive care with NG tube. Review of Systems Review of Systems: All systems reviewed & are unremarkable except as noted in HPI and below Constitutional: Constitutional: Reports as per HPI and Reports no additional constitutional complaints Eyes: Eyes: Reports as per HPI and Reports no additional eye complaints ENT: Reports system reviewed and no additional complaints, except as documented and Reports as per HPI Cardiovascular: Cardiovascular: Reports as per HPI and Reports no additional cardiovascular complaints Respiratory: Respiratory: Reports as per HPI and Reports no additional respiratory complaints Gastrointestinal: Gastrointestinal: Reports as per HPI and Reports no additional gastrointestinal complaints Genitourinary: Genitourinary: Reports no additional female genitourinary complaints and Reports as per HPI Musculoskeletal: Musculoskeletal: Reports no additional musculoskeletal complaints and Reports as per HPI Integumentary/Breasts: Skin/Breast: Reports system reviewed and no additional complaints, except as docu and Reports as per HPI Neurologic: Reports system reviewed and no additional complaints, except as documented and Reports as per HPI Psychiatric: Psychiatric: Reports no additional psychiatric complaints and Reports as per HPI [facility] Past Medical History Medical History Arthritis Cataract (lens) fragments in eye following cataract surgery, bilateral (Unknown) Colon cancer (~1997) Degenerative joint disease of left hip GERD (gastroesophageal reflux disease) Kidney disease Surgical History Surgical History History of appendectomy (~1996) History of dilatation and curettage (~1977) Status post total hip replacement, left Family History Family History Mother Aneurysm Father , drowning No problems noted. Sibling Metastatic bone cancer Social History Social History Smoking status: Never smoker Second hand tobacco smoke exposure: No Additional smoking assessment comments: PT DENIES ALL FORMS OF TOBACCO USE Alcohol intake: never Substance use: never Substance use type: does not use Do You Feel Safe in your Home?: Yes Lack of Transportation: No Lack of Food: Never True Current Housing:
[2023-12-25 08:15] LABS: Basophils Absolute Auto 0.1 K/mm3 (0.0-0.1); Basophils Percent Auto 0.9 % (0.2-1.2); Eosinophils Absolute Auto 0.4 K/mm3 (0-0.3); Eosinophils Percent Auto 5.5 % (0-4.4); Hematocrit 30.6 % (37.0-47.0); Hemoglobin 9.8 g/dL (12.0-15.0); Immature Granulocyte Absolute 0.03 K/mm3 (0.00-0.031); Immature Granulocyte Percent A 0.5 % (0-0.5); Lymphocytes Absolute Auto 0.77 K/mm3 (0.9-3.2); Lymphocytes Percent Auto 12.1 % (18.3-44.2); Mean Corpuscular Hemoglobin 30.2 pg (26-34); Mean Corpuscular Volume 94.4 fl (80-100); Mean Platelet Volume 8.6 fl (7.4-10.4); Monocytes Absolute Auto 0.7 K/mm3 (0.1-0.6); Monocytes Percent Auto 10.8 % (2.6-8.5); Neutrophils Absolute Auto 4.5 K/mm3 (1.3-6.7); Neutrophils Percent Auto 70.2 % (45.5-73.1); Platelet Count Result 344 k/mm3 (150-375); Red Blood Count 3.24 M/mm3 (4.2-5.4); Red Cell Distribution Width 13.4 % (11.5-14.5); White Blood Count 6.4 K/mm3 (4.5-10.0)
[2023-12-25 08:24] LABS: Alanine Aminotransferase 98 U/L (6-35); Albumin Level 3.2 g/dL (3.5-5.1); Alkaline Phosphatase 107 U/L (38-126); Anion Gap 7 mmol/L (4-12); Aspartate Amino Transferase 87 U/L (14-36); Bilirubin,Total 0.5 mg/dL (0.2-1.3); Blood Urea Nitrogen 19 mg/dL (7-17); Calcium 8.5 mg/dL (8.4-10.2); Carbon Dioxide 22 mmol/L (22-30); Chloride 107 mmol/L (98-107); Estimated CRCL calculation 39 ml/min; Estimated Glomerular Filt Rate > 60; Glucose 89 mg/dL (65-110); Magnesium 1.9 mg/dL (1.6-2.3); Potassium 3.9 mmol/L (3.4-5.0); Sodium 136 mmol/L (137-145)
--- NOTE | 2023-12-25 09:07 | PM.CNGS ---
Assessment and Plan Assessment and plan (1) Small bowel obstruction: Code(s): K56.609 - Unspecified intestinal obstruction, unspecified as to partial versus complete obstruction Status: Acute Assessment and Plan: The patient is postop day 7 following a left total hip arthroplasty and presented with abdominal pain and vomiting. CT showed evidence of a small bowel obstruction with transition point in the right pelvis. She does have a history of abdominal surgery with a colon resection over 40 years ago, which could cause some intraabdominal adhesions, but this could also be more of an ileus picture given her recent surgery. She has no peritoneal signs on exam and has started improving clinically with the NG tube. We would recommend continuing NG tube decompression, bowel rest, IV fluids, and analgesics as needed. Will order a water-soluble small bowel follow through to further evaluate the possible small bowel obstruction. (2) Status post total hip replacement, left: Code(s): Z96.642 - Presence of left artificial hip joint Status: Acute (3) Transaminitis: Code(s): R74.01 - Elevation of levels of liver transaminase levels Status: Acute Plan I have discussed the patient's case and plan of care with Dr. Coughlin. Thank you for allowing us to see the patient in consultation and we will continue to follow along with you. History of Present Illness Consult details Consult date: 12/25/23 Reason for consult: other (Possible small bowel obstruction) Requesting physician: Preet Jacobson MD Narrative: This is an 83-year-old woman with a remote history of colon cancer status post colon resection over 40 years ago, who we have been asked to see in surgical consultation for a possible small-bowel obstruction. The patient had a left total hip replacement on 12/18/[address] Lopez. When she was discharged home, she noticed some generalized abdominal pain. She was concerned she was constipated, but did not have the urge to defecate. Been taking MiraLax postoperatively as prescribed by her orthopedic surgeon. She denies ever passing any flatus or having any bowel movements following surgery. Her abdominal pain progressively got worse over the weekend and she developed nausea, bloating, and vomiting. Due to her persistent symptoms, she came into the ER for evaluation yesterday. Labs showed a white blood cell count 9100, serum bicarb 17, BUN 28, creatinine 0.9, lactic acid 2.5 with repeat down to 0.8. AST, ALT, and alk-phos also mildly elevated. UA negative for UTI. CT scan of the abdomen and pelvis showed a small-bowel obstruction with transition point at the anterioinferior right pelvis, small sliding-type hiatal hernia. She was admitted to the hospitalist service. NG tube was placed. She is seen on the medical floor. Review of Systems Review of Systems: All systems reviewed & are unremarkable except as noted in HPI and below PMFSH Past Medical History Medical History Arthritis Cataract (lens) fragments in eye following cataract surgery, bilateral (Unknown) Colon cancer (~1997) Degenerative joint disease of left hip GERD (gastroesophageal reflux disease) Kidney disease Surgical History Surgical History History of appendectomy (~1996) History of dilatation and curettage (~1977) Status post total hip replacement, left Family History Family History Mother Aneurysm Father , drowning No problems noted. Sibling Metastatic bone cancer Social History Social History Smoking status: Never smoker Second hand tobacco smoke exposure: No Additional smoking assessment comments: PT DENIES ALL FORMS OF TOBACCO USE Alcohol intake: never Substance u
--- NOTE | 2023-12-25 11:06 | PCPTNOTE ---
Attempted PT evaluation, pt off the unit for test. Will follow.
[2023-12-25] MEDS: DEXTROSE 5%/LACTATED RINGERS 1,000 ML 100 ML IV CONT ×2 (11:24→21:40)
[2023-12-25] MEDS: ENOXAPARIN 40 MG/0.4 ML SYRINGE SUB-Q (11:28)
--- NOTE | 2023-12-25 12:30 | PM.PNORT ---
Progress Note: A&P Assessment and Plan (1) Status post total hip replacement, left: Code(s): Z96.642 - Presence of left artificial hip joint Status: Acute (2) Small bowel obstruction: Code(s): K56.609 - Unspecified intestinal obstruction, unspecified as to partial versus complete obstruction Status: Acute Plan Pleasant 83 y/o female patient who is 7 days post total hip arthroplasty was admitted to the hospital for a small bowel obstruction. Hip is performing well. Patient was prescribed opioid pain medication after surgery. She states she took it for 2 days. She was taking Senokot-s and Miralax. Patient has a history of abdominal surgery. NG tube in place. Mepilex dressing removed today. Keep steri-strips for 1 week. May shower. Weight bearing as tolerated with a walker. May start PT/OT. Subjective Subjective Date/Time Seen: 12/25/23 12:30 Interval history: Patient was admitted for a bowel obstruction. She is 7 days post total hip arthroplasty. She states the hip itself is doing great and she has little pain. She took pain medication for 2 days. She states she was taking Senokot-s and miralax. She states she used metamucil also. She states she had been throwing up and unable to keep the Senokot-S down. She has abdominal pain. No other complaints. Review of Systems Review of Systems: All systems reviewed & are unremarkable except as noted in HPI and below Exam Narrative: Thin 83 y/o female. Resting comfortably in bed. NG tube in place. Wearing compression socks bilaterally. Dressing dry and intact with no drainage. Mepilex removed today. Wound healing well. Mild swelling. No ecchymosis. No erythema. No hematoma. Range of motion limited due to pain. Calf nontender. Thigh nontender. Neurologic status intact. No varicosities. Distal pulses palpable. Objective Data Vital Signs Vital Signs: Vital Signs - 24 hr 12/24/23 17:48 12/24/23 19:48 12/24/23 22:44 Temperature 96.9 F L Pulse Rate 79 80 94 Respiratory Rate 14 16 16 Blood Pressure 142/61 H 138/61 158/56 H Pulse Oximetry 100 100 98 Oxygen Delivery 12/24/23 23:49 12/25/23 00:25 12/25/23 05:25 Temperature 98.4 F 98.6 F Pulse Rate 91 87 Respiratory Rate 18 16 Blood Pressure 158/59 H 154/60 H Pulse Oximetry 99 96 Oxygen Delivery Room Air Intake/Output Intake/Output: Intake & Output 12/22/23 12/23/23 12/24/23 12/25/23 23:59 23:59 23:59 23:59 Intake Total 1999 1100 Balance 1999 1100 Meds/Results Medications: Active Medications Generic Name Dose Route Start Last Admin Trade Name Freq PRN Reason Stop Dose Admin Enoxaparin Sodium 40 mg 12/25/23 09:00 12/25/23 11:28 Enoxaparin 40 Mg/0.4 Ml Syringe SUB-Q 40 mg DAILY DIETER Administration Dextrose/Lactated Ringer's 1,000 mls @ 100 mls/hr 12/25/23 08:00 12/25/23 11:24 Dextrose 5%/Lactated Ringers IV CONT 100 mls/hr .Q10H DIETER Administration Morphine Sulfate 2 mg 12/25/23 07:56 Morphine Sulfate (*Crx) 2 Mg/Ml Inj IV PUSH Q6H PRN Pain Rated 7-10 Ondansetron HCl 4 mg 12/25/23 07:56 Ondansetron Inj 4 Mg/2 Ml Vial IV PUSH Q6H PRN Nausea And Vomiting Radiology Results: ITS Impressions Abdomen/Pelvis CT 12/24/23 20:37 IMPRESSION: 1. Small bowel obstruction with transition point at the anteroinferior right pelvis. 2. Small sliding-type hiatal hernia. Abdomen X-Ray 12/24/23 21:51 IMPRESSION: 1. Nasogastric tube tip in the body of the stomach. Consider advancement by [address] the proximal side-port below level of the gastroesophageal junction. Small Bowel X-Ray 12/25/23 11:12 IMPRESSION: 1. Partial small bowel obstruction. Labs Labs: Laboratory Results - last 24 hr 12/24/23 12/24/23 12/25/23 19:34 19:39 00:51 WBC 9.1 RBC 4.12 L Hgb 12.5 Hct 38.2 MCV 92.7 MCH 30.3 MCHC 32.7 RDW 13.5 Plt Count 504 H D MPV 9.1 Immature Gran % (Auto)
[2023-12-25 14:00] VITALS: BP 129/64; PULSE 132; RESP 16; TEMP 36.8; O2SAT 98
[2023-12-25 23:32] VITALS: BP 138/50; PULSE 78; RESP 18; TEMP 36.6; O2SAT 98
[2023-12-26 05:31] LABS: Basophils Percent Auto 0.6 % (0.2-1.2); Eosinophils Absolute Auto 0.3 K/mm3 (0-0.3); Eosinophils Percent Auto 6.2 % (0-4.4); Hematocrit 26.8 % (37.0-47.0); Hemoglobin 8.4 g/dL (12.0-15.0); Immature Granulocyte Absolute 0.02 K/mm3 (0.00-0.031); Immature Granulocyte Percent A 0.4 % (0-0.5); Lymphocytes Absolute Auto 0.95 K/mm3 (0.9-3.2); Lymphocytes Percent Auto 18.9 % (18.3-44.2); Mean Corpuscular HGB Conc 31.3 g/dl (32-36); Mean Corpuscular Hemoglobin 30.2 pg (26-34); Mean Corpuscular Volume 96.4 fl (80-100); Mean Platelet Volume 9.1 fl (7.4-10.4); Monocytes Absolute Auto 0.6 K/mm3 (0.1-0.6); Monocytes Percent Auto 12.5 % (2.6-8.5); Neutrophils Absolute Auto 3.1 K/mm3 (1.3-6.7); Neutrophils Percent Auto 61.4 % (45.5-73.1); Platelet Count Result 319 k/mm3 (150-375); Red Blood Count 2.78 M/mm3 (4.2-5.4); Red Cell Distribution Width 13.5 % (11.5-14.5)
[2023-12-26 05:44] LABS: Alanine Aminotransferase 60 U/L (6-35); Albumin Level 2.8 g/dL (3.5-5.1); Alkaline Phosphatase 82 U/L (38-126); Anion Gap 2 mmol/L (4-12); Aspartate Amino Transferase 38 U/L (14-36); Bilirubin,Total 0.3 mg/dL (0.2-1.3); Blood Urea Nitrogen 15 mg/dL (7-17); Calcium 8.5 mg/dL (8.4-10.2); Carbon Dioxide 27 mmol/L (22-30); Chloride 112 mmol/L (98-107); Estimated CRCL calculation 44 ml/min; Estimated Glomerular Filt Rate > 60; Glucose 118 mg/dL (65-110); Sodium 141 mmol/L (137-145)
[2023-12-26] MEDS: DEXTROSE 5%/LACTATED RINGERS 1,000 ML 100 ML IV CONT (06:23)
[2023-12-26 06:42] VITALS: BP 121/53; PULSE 63; RESP 16; TEMP 36.8; O2SAT 97
[2023-12-26] MEDS: ENOXAPARIN 40 MG/0.4 ML SYRINGE SUB-Q (08:43)
--- NOTE | 2023-12-26 11:55 | PM.PNORT ---
Progress Note: A&P Assessment and Plan (1) Status post total hip replacement, left: Code(s): Z96.642 - Presence of left artificial hip joint Status: Acute (2) Small bowel obstruction: Code(s): K56.609 - Unspecified intestinal obstruction, unspecified as to partial versus complete obstruction Status: Acute Plan Pleasant 83 y/o female patient who is 8 days post total hip arthroplasty was admitted to the hospital for a small bowel obstruction. Hip is performing well. Patient is doing much better. She has had multiple bowel movements and the NG tube was removed. She is planning on discharge today. Will continue all prior hip instructions. Limit narcotic pain medication. Subjective Subjective Date/Time Seen: 12/26/23 11:55 Interval history: Patient states she is feeling much better today. Her NG tube was removed yesterday. She has had multiple bowel movements. She was tolerating clear liquids well at the time of my visit. No pain or issues with her hip. Review of Systems Review of Systems: All systems reviewed & are unremarkable except as noted in HPI and below Exam Narrative: Thin 83 y/o female. Resting comfortably in bed. Wearing compression socks bilaterally. Dressing dry and intact with no drainage. Wound healing well. Mild swelling. No ecchymosis. No erythema. No hematoma. Range of motion limited due to pain. Calf nontender. Thigh nontender. Neurologic status intact. No varicosities. Distal pulses palpable. Objective Data Vital Signs Vital Signs: Vital Signs - 24 hr 12/25/23 14:00 12/25/23 20:00 12/25/23 23:32 Temperature 98.2 F 97.8 F Pulse Rate 132 H 78 Respiratory Rate 16 18 Blood Pressure 129/64 138/50 L Pulse Oximetry 98 98 Oxygen Delivery Room Air 12/26/23 06:42 12/26/23 10:25 12/26/23 08:45 Temperature 98.2 F Pulse Rate 63 Respiratory Rate 16 Blood Pressure 121/53 L Pulse Oximetry 97 Oxygen Delivery Room Air Room Air Intake/Output Intake/Output: Intake & Output 12/23/23 12/24/23 12/25/23 12/26/23 23:59 23:59 23:59 23:59 Intake Total 1999 2100 1261.7 Balance 1999 2100 1261.7 Meds/Results Medications: Active Medications Generic Name Dose Route Start Last Admin Trade Name Freq PRN Reason Stop Dose Admin Enoxaparin Sodium 40 mg 12/25/23 09:00 12/26/23 08:43 Enoxaparin 40 Mg/0.4 Ml Syringe SUB-Q 40 mg DAILY DIETER Administration Dextrose/Lactated Ringer's 1,000 mls @ 100 mls/hr 12/25/23 08:00 12/26/23 06:23 Dextrose 5%/Lactated Ringers IV CONT 100 mls/hr .Q10H DIETER Administration Morphine Sulfate 2 mg 12/25/23 07:56 Morphine Sulfate (*Crx) 2 Mg/Ml Inj IV PUSH Q6H PRN Pain Rated 7-10 Ondansetron HCl 4 mg 12/25/23 07:56 Ondansetron Inj 4 Mg/2 Ml Vial IV PUSH Q6H PRN Nausea And Vomiting Radiology Results: ITS Impressions Abdomen/Pelvis CT 12/24/23 20:37 IMPRESSION: 1. Small bowel obstruction with transition point at the anteroinferior right pelvis. 2. Small sliding-type hiatal hernia. Abdomen X-Ray 12/24/23 21:51 IMPRESSION: 1. Nasogastric tube tip in the body of the stomach. Consider advancement by [address] the proximal side-port below level of the gastroesophageal junction. Small Bowel X-Ray 12/25/23 11:12 IMPRESSION: 1. Partial small bowel obstruction. Labs Labs: Laboratory Results - last 24 hr 12/26/23 05:09 WBC 5.0 RBC 2.78 L Hgb 8.4 L Hct 26.8 L MCV 96.4 MCH 30.2 MCHC 31.3 L RDW 13.5 Plt Count 319 MPV 9.1 Immature Gran % (Auto) 0.4 Neut % (Auto) 61.4 Lymph % (Auto) 18.9 [place] % (Auto) 12.5 H Eos % (Auto) 6.2 H Baso % (Auto) 0.6 Lymph # (Auto) 0.95 [place] # (Auto) 0.6 Eos # (Auto) 0.3 Baso # (Auto) 0.0 Abs Immat Gran (auto) 0.02 Absolute Neuts (auto) 3.1 Absolute Nucleated RBC 0.000 Nucleated RBC % 0.0 Sodium 141 Potassium 3.0 L Chloride 112 H Carbon Dioxide 27 Anion Gap 2 L BUN 15 C
--- NOTE | 2023-12-26 14:18 | PM.DS ---
DS: Admitting Diagnosis Discharge Date 12/26/23 Admitting Diagnosis SBO Transaminitis Status post total hip replacement on the left Iron deficiency anemia DS: Discharge Diagnosis Discharge Diagnosis (1) Small bowel obstruction: Code(s): K56.609 - Unspecified intestinal obstruction, unspecified as to partial versus complete obstruction Status: Acute (2) Transaminitis: Code(s): R74.01 - Elevation of levels of liver transaminase levels Status: Acute (3) Status post total hip replacement, left: Code(s): Z96.642 - Presence of left artificial hip joint Status: Acute (4) Iron deficiency anemia: Code(s): D50.9 - Iron deficiency anemia, unspecified Status: Acute DS: Summary Hospital Course Reason for hospitalization: SBO Transaminitis Status post total hip replacement on the left Iron deficiency anemia Hospital Course: 12/25/23: This is an 83 year old female with a significant past medical history of colon cancer, GERD, kidney disease, cataracts, appendectomy and who presented to the hospital with abdominal pain, nausea, vomiting, abdominal distention. Patient denies any fever, chills, diarrhea, abdominal pain, chest pain, shortness of breath. She reports that she just had a bowel movement and emesis. She states that she feels like she could have another bowel movement soon.? Patient is POD 7 from a Left THR performed by Dr. Lopez and she reports that she has not had a bowel movement since before her surgery. Patient tried a Fleets enema and senna at home but was unsuccessful with both. She continued with worsening symptoms and came to the ED for further evaluation. Work up in the hospital includes an abdomen/pelvis CT which shown small bowel obstruction with transition point at the anteroinferior right pelvis, small sliding-type hiatal hernia. NG tube was inserted. KUB shown NGT in the body of the stomach.Initial labs revealed WBC 9.1, Plt count of 504, Bicarb 17, Anion gap 20 , lactic acid 2.5>0.8, Ca+ 10.3, AST 122, ALT 103, Alk phos 142, lipase 93. UA shown 1+ urine protein, 3+ glucose, 3+ ketones. EKG NSR with rate of 75. Patient received 2L NS, Zofran, Protonix, potassium, and started on LR at 150ml/hr while in the ED. General surgery was consulted and recommends supportive care with NG tube. 12/26/23: Patient denies any new complaints today. NG tube was discontinued and patient is tolerating food and fluid. She has had bowel movement and is passing. General surgery has signed off. Labs today reveal a hemoglobin of 8.4, potassium 3.0 which was replaced, otherwise unremarkable. Patient is stable for discharge at this time. She will need to follow up with her primary care physician in about a week and her orthopedic surgeon and about 2 weeks. Final diagnosis: Small-bowel obstruction, transaminitis Status at Discharge Cognitive/behavioral status at discharge: Alert oriented x4 Functional status at discharge: uses cane/walker Overall status at discharge: patient is progressing back to baseline Time Spent with Patient Time attestation: Total time spent providing and/or coordinating discharge services: Time spent: Greater than 30 minutes Exam Narrative: General: In no acute distress, well nourished Head: atraumatic, no encephalopathy Eyes: EOMI, PERRLA, sclera clear ENT: moist mucous membranes, nasal passages clear Neck: supple, no JVD, no adenopathy, trachea midline Cardiac: Normal S1 and S2. RRR. No murmur, gallops or friction rubs, peripheral pulses intact. Respiratory: Lungs clear to auscultation, no adventitious lung sounds, currently on room air Gastrointestinal: soft, non-distended, non-tender, normoactive bowel sounds. She is passing gas and having bowel movements. Nausea, vomiting has resolved : voiding without difficulty. Extremities: moves all extremities well, no edema, good ROM, strength 5/5 Skin: clean, dry, intact. No wounds or lesions. Neuro: Alert and oriented x4,
[2023-12-26] MEDS: POTASSIUM CHLORIDE 20 MEQ ER TABLET 40 MEQ PO (14:22)
== END 2023-12-26 14:40 | disposition home or self-care (01) | DRG 390 ==
LOC: ANHED 21:34 → ANH3MEDSUR 23:22
PROVIDERS: Admitting Provider Internal Medicine; Emergency Provider Emergency Medicine; PCP Family Medicine; Visit Provider Nurse Practitioner Acute Care
DX: K56.609 Unspecified intestinal obstruction, unspecified as to partial versus complete obstruction (principal); Z96.642 Presence of left artificial hip joint; D50.9 Iron deficiency anemia, unspecified; K21.9 Gastro-esophageal reflux disease without esophagitis; K44.9 Diaphragmatic hernia without obstruction or gangrene; R74.01 Elevation of levels of liver transaminase levels; Z90.49 Acquired absence of other specified parts of digestive tract; Z79.82 Long term (current) use of aspirin; Z85.038 Personal history of other malignant neoplasm of large intestine; Z98.41 Cataract extraction status, right eye; Z98.42 Cataract extraction status, left eye
CPT/HCPCS: 36415; 74177; 74250; 80053; 81001; 83605; 83690; 83735; 85025; 93005; 96361; 96374; 96375; 97161; 97165; 97535; 99285; A9270; C9113; J1650; J2405; J3480; J7030; J7120; J7121; Q9967

== ENCOUNTER 2024-01-13 17:49 | Inpatient (IN) | payer MEDICARE, OTHER, SELFPAY ==
--- NOTE | ~2024-01-13 | CT_ITS ---
EXAMINATION: CT abdomen pelvis w con DATE: 01/13/2024 21:50 INDICATION: abdominal pain hx of sbo TECHNIQUE: Computed tomography (CT) of the abdomen and pelvis was performed with 100 mL Omnipaque-350 intravenous contrast. Automated exposure control and iterative reconstruction technique were employe d. The dose-length product was 184.77 mGy-cm. COMPARISON: None. FINDINGS: Lower thorax: Unremarkable Liver: Normal. Biliary/Gallbladder: Gallbladder is normal. No bile duct dilation. Pancreas: No mass or duct dilation. Spleen: Normal. Adrenals:No mass. Kidneys: No suspicious mass, obstructing stone, or hydronephrosis. GI tract: Multiple loops of mildly dilated small bowel, most pronounced in the left abdomen, with int erspersed areas of normal caliber bowel. No definitive transition point. Appendix not confidently vis ualized. Uncomplicated rectosigmoid anastomosis. Mesentery/Peritoneum: No ascites, mass, or free air. Retroperitoneum: No mass. Pelvis: Pelvic organs are within normal limits. Soft Tissues: Soft tissues and body wall unremarkable. Bones: No acute osseous finding. Partially visualized left hip arthroplasty hardware. IMPRESSION: Scattered areas of small bowel dilation may represent ileus or partial obstruction. Reviewed, dictated and finalized at location K. IMPRESSION: Scattered areas of small bowel dilation may represent ileus or partial obstruct ion.
--- NOTE | ~2024-01-13 | XR_ITS ---
EXAM: XR abdomen gastric tube insert DATE: 01/13/2024 23:46 HISTORY: NG placement . COMPARISON: 12/24/2023. FINDINGS: Clear lung bases. NG tube, tip and side port project over the expected location of the sto mach. Contrast within the bilateral renal collecting systems. Known dilated small bowel loops in the prior CT not visualized as they are fluid-filled. Degenerative changes in the spine. IMPRESSION: NG tube, in good position. Reviewed, dictated and finalized at location K. IMPRESSION: NG tube, in good position.
--- NOTE | ~2024-01-13 | XR_ITS ---
EXAMINATION: XR small bowel follow through DATE: 01/14/2024 13:21 INDICATION: Partial small bowel obstruction. TECHNIQUE: Oral contrast was administered, and a time course of radiographs of the abdomen was obtain ed. Fluoroscopy of the small bowel was not performed. Fluoroscopy exposure time was 0 minutes. The to everardo number of images was 4. COMPARISON: Small bowel series 12/25/2023, CT abdomen and pelvis 01/13/2024 FINDINGS: The nasogastric tube tip is in the stomach. There are mildly dilated loops of small bowel. Transit ti me from the stomach to proximal colon was approximately 30 minutes. There is a total left hip arthrop lasty. IMPRESSION: 1. Mildly dilated loops of small bowel with normal transit time to the colon, consistent with adynami c ileus. Reviewed, dictated and finalized at location A. IMPRESSION: 1. Mildly dilated loops of small bowel with normal transit time to the colon, c onsistent with adynamic ileus.
[2024-01-13 17:51] VITALS: BP 132/70; PULSE 122; RESP 18; TEMP 36.7; O2SAT 100
--- NOTE | 2024-01-13 17:56 | PC.NURSE ---
pt walking w/cane, refuses wheelchair
[2024-01-13 19:22] LABS: Basophils Absolute Auto 0.1 K/mm3 (0.0-0.1); Basophils Percent Auto 0.6 % (0.2-1.2); Eosinophils Absolute Auto 0.1 K/mm3 (0-0.3); Eosinophils Percent Auto 0.5 % (0-4.4); Hematocrit 37.4 % (37.0-47.0); Hemoglobin 11.9 g/dL (12.0-15.0); Immature Granulocyte Absolute 0.02 K/mm3 (0.00-0.031); Immature Granulocyte Percent A 0.2 % (0-0.5); Lymphocytes Absolute Auto 0.88 K/mm3 (0.9-3.2); Lymphocytes Percent Auto 8.6 % (18.3-44.2); Mean Corpuscular HGB Conc 31.8 g/dl (32-36); Mean Corpuscular Volume 91.2 fl (80-100); Mean Platelet Volume 9.3 fl (7.4-10.4); Monocytes Absolute Auto 0.9 K/mm3 (0.1-0.6); Monocytes Percent Auto 8.5 % (2.6-8.5); Neutrophils Absolute Auto 8.3 K/mm3 (1.3-6.7); Neutrophils Percent Auto 81.6 % (45.5-73.1); Platelet Count Result 451 k/mm3 (150-375); Red Cell Distribution Width 12.9 % (11.5-14.5); White Blood Count 10.2 K/mm3 (4.5-10.0)
[2024-01-13 19:36] LABS: Alanine Aminotransferase 38 U/L (6-35); Albumin Level 4.3 g/dL (3.5-5.1); Alkaline Phosphatase 206 U/L (38-126); Anion Gap 14 mmol/L (4-12); Aspartate Amino Transferase 38 U/L (14-36); Bilirubin,Total 0.7 mg/dL (0.2-1.3); Blood Urea Nitrogen 19 mg/dL (7-17); Calcium 9.8 mg/dL (8.4-10.2); Carbon Dioxide 20 mmol/L (22-30); Chloride 105 mmol/L (98-107); Estimated CRCL calculation 35 ml/min; Estimated Glomerular Filt Rate 60; Glucose 139 mg/dL (65-110); Lipase 94 U/L (23-300); Sodium 139 mmol/L (137-145)
[2024-01-13 21:08] VITALS: BP 139/75; PULSE 97; RESP 20; O2SAT 100
--- NOTE | 2024-01-13 21:34 | ED.GENADULT ---
HPI - General Adult General Chief complaint: Abdominal Pain Stated complaint: bowel obstruction Time Seen by Provider: 01/13/24 21:23 History of Present Illness HPI narrative: Patient is a 3-year-old female who presents emergency department with chief complaint of abdominal pain. Patient reports she was recently in the hospital and had a small bowel obstruction the patient reports that she was treated conservatively with an NG tube and reports that over the last 4 days she has had no bowel movement reports that her abdomen has become progressively more painful the patient reports she has not been passing gas and reports this feels similar to when she had a bowel obstruction in the past Related Data Home Medications Medication Instructions Recorded Confirmed acetaminophen 500 mg tablet 1,000 mg PO Q6H PRN Pain 11/26/23 12/31/23 zinc 50 mg tablet 50 mg PO DAILY 11/26/23 12/31/23 Allergies Allergy/AdvReac Type Severity Reaction Status Date / Time acetaminophen Allergy Mild Hives Verified 01/13/24 17:55 [From Excedrin Migraine] aspirin Allergy Mild Hives Verified 01/13/24 17:55 [From Excedrin Migraine] caffeine Allergy Mild Hives Verified 01/13/24 17:55 [From Excedrin Migraine] Review of Systems Review of Systems: A 10 system review of systems was completed on the patient and is negative except for what is stated in the HPI. Nursing and ancillary documentation was reviewed. [facility] Past Medical History Medical History Arthritis Cataract (lens) fragments in eye following cataract surgery, bilateral (Unknown) Colon cancer (~1997) Degenerative joint disease of left hip GERD (gastroesophageal reflux disease) Kidney disease Surgical History Surgical History History of appendectomy (~1996) History of dilatation and curettage (~1977) Status post total hip replacement, left (~12/18/23) Family History Family History Mother Aneurysm Father , drowning No problems noted. Sibling Metastatic bone cancer Social History Social History Smoking status: Never smoker Second hand tobacco smoke exposure: No Additional smoking assessment comments: PT DENIES ALL FORMS OF TOBACCO USE Alcohol intake: never Substance use: never Substance use type: does not use Do You Feel Safe in your Home?: Yes Lack of Transportation: No Lack of Food: Never True Current Housing: I Have Housing Concerned About Future Housing: No Difficulty Paying Gas/Electric Bills: No Difficulty Paying for Meds: No Currently Unemployed: No Education: Decline to Answer Difficulty w/ Childcare or Family Care: No Living arrangements: with family Occupation/Education: retired Gender identity (if verbalized by the patient): Female Sexual Orientation (if Verbalized by the Patient): Straight or Heterosexual Spiritual care concerns: No Agree to blood products: Yes Exam Narrative: GENERAL: Well-appearing, well-nourished, and in no acute distress. HEAD: Normocephalic, atraumatic. EYES: PERRLA and EOMI. ENT: Nares clear, no rhinorrhea or epistaxis. Mucous membranes moist. NECK: Supple. CHEST: Clear to auscultation. No respiratory distress. HEART: Regular rate and rhythm. No murmur heard. Normal peripheral pulses. ABDOMEN: Soft, diffusely tender to palpation, nondistended, normal active bowel sounds. EXTREMITIES: Normal range of motion. No edema. SKIN: Warm, dry, no rash. NEURO: No focal deficits. Alert and oriented x3. PSYCH: Normal mood and affect. Course Vital Signs Vital signs: Vital Signs Temperature 36.7 C 01/13/24 17:51 Pulse Rate 122 H 01/13/24 17:51 Respiratory Rate 18 01/13/24 17:51 Bloo
[2024-01-13 21:48] LABS: Appearance Urine Clear (Clear); Bacteria Urine 4+ /hpf; Bilirubin Urine Negative (Negative); Blood Urine Negative (Negative); Color Urine Yellow (Yellow); Glucose Urine UA 3+ mg/dL (Negative); Ketones Urine 3+ mg/dL (Negative); Leukocyte Esterase Ur Negative LEU/UL (Negative); Need Manual Microscopic Reviewed; Nitrate Urine Negative (Negative); Protein Urine 1+ mg/dL (Negative); RBC Urine 0-2 /hpf (0-2); Squamous Epithelial Cell Urine Few /hpf (Few); Urobilinogen Urine 0.2 mg/dL (<2.0); pH Urine 5.5 (5.0-9.0)
[2024-01-13 21:49] LABS: Add Urine Microscopic? YES; Specific Grav Ur 1.037 (1.001-1.035)
[2024-01-13] MEDS: ONDANSETRON INJ 4 MG/2 ML VIAL IV PUSH (21:54)
[2024-01-13] MEDS: MORPHINE SULFATE (*CRX) 4 MG/ML INJ 2 MG IV PUSH (21:55)
[2024-01-13] MEDS: SODIUM CHLORIDE 0.9% IV 1,000 ML 999 ML IV CONT (21:56)
[2024-01-13 23:00] VITALS: BP 132/57; PULSE 99; RESP 16; O2SAT 98
[2024-01-14] VITALS (7 sets, daily range): BP systolic 130–154; BP diastolic 50–66; PULSE 78–100; RESP 12–16; TEMP 36.2–36.7; O2SAT 95–99; BMI 21.4
--- NOTE | 2024-01-14 01:37 | ADMGEN ---
This patient, Maryjane Menchaca, was admitted to [facility] Surg Room 325-02. Patient/family oriented to hospital policies and general routines including ID bracelet, bed and alarms, visiting hours, pain management, procedures, bathroom and other care routines, personal items, smoking policy, room service/diet, and visiting hours. Information on how to activate the Rapid Response Team has been discussed. Patient/Family are encouraged to report perceived risks to care and to ask questions if they do not understand what they are told or what they should do.
[2024-01-14] MEDS: SODIUM CHLORIDE 0.9% IV 1,000 ML 125 ML IV CONT ×2 (01:54→20:14)
--- NOTE | 2024-01-14 08:27 | PM.IMHP ---
H&P: HPI History of Present Illness Date/Time: 01/14/24 08:27 Chief Complaint: Abdominal Pain Narrative: Patient is a 83 year old female with a past medical history of colon cancer, GERD, kidney disease, cataracts, appendectomy and previous bowel obstruction who presented to the hospital with abdominal pain, nausea, vomiting, abdominal distention. Patient recently admitted to the hospital 12/24-05/2024 for a bowel obstruction, and had a hip replacement on 12/18/23. After her hip replacement she developed a bowel obstruction. This time she stated that on Friday night she started to have abdominal pain. This then lead to nausea and vomiting on Friday. She stated that she has not be able to keep any thing down. She stated that she took senna and miralax which she stated did not help. She denies any changes in appetite other than eating less. She denies any chest pain, shortness of breath, fevers, sweats, chills, diarrhea. She stated that she has been weaker and having more fatigue over the last day or so. Currently her pain is 3 to 5/10. She did state that the NG tube is helped. Abdomen is soft. She did state that she is having gas. She stated that her abdomen is just really sore. She also stated that this time feels the same as last time. Who is having admission white blood cell count was 10.2, BUN creatinine 19/0.9. Abdomen pelvis CT showed scattered areas of small bowel dilatation representing ileus versus partial bowel obstruction. NG tube is been inserted. Currently on low intermittent suction. No output noted at this time. Bowel sounds are very hypoactive bilaterally. General surgery has been consulted. Patient is being admitted to the hospitalist service as observation and will most likely require less than 2 midnight stay for workup, treatment, recovery. Review of Systems Review of Systems: All systems reviewed & are unremarkable except as noted in HPI and below PMFSH Past Medical History Medical History (Updated 01/14/24 @ 09:04 by CAROLE Lovett) Arthritis Cataract (lens) fragments in eye following cataract surgery, bilateral (Unknown) Colon cancer (~1997) Degenerative joint disease of left hip GERD (gastroesophageal reflux disease) Kidney disease Small bowel obstruction Surgical History Surgical History History of appendectomy (~1996) History of dilatation and curettage (~1977) Status post total hip replacement, left (~12/18/23) Family History Family History Mother Aneurysm Father , drowning No problems noted. Sibling Metastatic bone cancer Social History Social History (Updated 01/14/24 @ 09:05 by Clarke Melchor APN-Real) Social History: Patient lives with her Niurka and has 2 kids. 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 She does have a barn cats along with chicken sink wheels at home. She denies any smoking, drinking or drug use. She wishes to be a full code at this time and elects her amy to be her surrogate Smoking status: Never smoker Second hand tobacco smoke exposure: No Additional smoking assessment comments: PT DENIES ALL FORMS OF TOBACCO USE Alcohol intake: never Substance use: never Substance use type: does not use Do You Feel Safe in your Home?: Yes Lack of Transportation: No Lack of Food: Never True Current Housing: I Have Housing Concerned About Future Housing: No Difficulty Paying Gas/Electric Bills: No Difficulty Paying for Meds: No Currently Unemployed: No Education: Grade School Difficulty w/ Childcare or Family Care: No Living arrangements: with family Occupation/Education: retired Gender identity (if verbalized by the patient): Female Sexual Orientation (if Verbalized by the Patient): Straight or Heterosexual Spiritual care concerns: No Agree to blood
--- NOTE | 2024-01-14 18:01 | WPDCN ---
Assessment and Plan Assessment and plan (1) Abdominal pain: Qualifiers: Abdominal location: generalized Qualified Code(s): R10.84 - Generalized abdominal pain Code(s): R10.9 - Unspecified abdominal pain Status: Acute Assessment and Plan: Patient's abdominal pain is much better now. NG tube output is low. Water-soluble small bowel series today was normal aside from some mildly dilated loops of small bowel without transition point. Transit time to the colon was 30minutes which was normal. She might have another ileus. Her urinalysis showed 4+ bacteria and only a few squamous epithelial cells. However her leukocyte esterase was negative. 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 Also her CT scan showed copious amounts this solid stool throughout the whole colon she also could be having issues with constipation. I think she needs to be and a good stool regimen with MiraLax and stool softeners. She has no evidence for need for a operative intervention. We will go ahead remove her nasogastric tube in go ahead and let her have some clear liquids and advance diet as tolerated. HPI Data of Consult Date/Time: 01/14/24 18:01 Requesting Physician: Matilde Rae DO Primary Care Provider: Tomi Dinh MD Consult Narrative Reason for consult: Abdominal pain, nausea vomiting, partial small-bowel obstruction Narrative: Maryjane Menchaca is a 83 year old female who I had previously seen the hospital about 2 weeks ago for a similar situation where she had nausea vomiting abdominal pain and appeared to have a partial small-bowel obstruction versus a small bowel ileus. The week prior to her admission previously she had a left hip replacement by Dr. Lopez. During hospitalization the small bowel series which showed normal transit time she started having bowel movements. This most likely due to a small bowel ileus rather than mechanical small bowel obstruction. Her nasogastric tube was removed she was advanced on diet for did very well was discharged home in improved condition. She states she has been doing very well over last 2 weeks, having bowel movements and eating well. Yesterday she started having generalized abdominal pain again had multiple episodes of nausea and vomiting. She re-presented to the emergency room again and CT scan of the abdomen pelvis was performed showing dilated loops of small bowel without true transition point and so patient was thought to have a partial small-bowel obstruction versus another small-bowel ileus. She was admitted to the hospital after having a nasogastric tube placed in the emergency room. Output from nasogastric tube is low today. She is passing some flatus. White blood cell count on admission in the emergency room was normal. This morning it nancy to 10,000. There is no fever or tachycardia. This morning when I saw her she was very comfortable and did not complain of having any nausea or abdominal pain. I ordered a water-soluble small bowel series. It showed some mildly dilated loops of small bowel but no transition point. Transit time of contrast to the colon was 30minutes which was normal. Review of Systems Review of Systems: The remainder of the review of systems to include constitutional, HEENT, cardiovascular, respiratory, GI, , integumentary, musculoskeletal, endocrine, immunologic, hematologic, psychiatric, and neurologic are all negative except for which is mentioned above in the HPI. [facility] Past Medical History Medical History Arthritis Cataract (lens) fragments in eye following cataract surgery, bilateral (Unknown) Colon cancer (~1997) Degenerative joint disease of left hip GERD (gastroesophageal reflux disease) Kidney disease Small bowel obstruction Surgical History Surgical H
[2024-01-14] MEDS: SULFAMETHOXAZOLE/TRIMETHOPRIM 800/160 MG DS TABLET 1 TAB PO (20:13)
[2024-01-14] MEDS: BISACODYL 10 MG SUPPOSITORY RECTAL (20:14)
[2024-01-14] MEDS: DOCUSATE SODIUM 100 MG CAPSULE PO (20:14)
[2024-01-15] MEDS: SODIUM CHLORIDE 0.9% IV 1,000 ML 125 ML IV CONT (04:14)
[2024-01-15 05:21] VITALS: BP 127/57; PULSE 76; RESP 16; TEMP 36.6; O2SAT 97
[2024-01-15 06:30] LABS: Basophils Absolute Auto 0.1 K/mm3 (0.0-0.1); Basophils Percent Auto 1.2 % (0.2-1.2); Eosinophils Absolute Auto 0.4 K/mm3 (0-0.3); Eosinophils Percent Auto 8.2 % (0-4.4); Hemoglobin 8.1 g/dL (12.0-15.0); Immature Granulocyte Absolute 0.01 K/mm3 (0.00-0.031); Immature Granulocyte Percent A 0.2 % (0-0.5); Lymphocytes Absolute Auto 1.13 K/mm3 (0.9-3.2); Lymphocytes Percent Auto 22.6 % (18.3-44.2); Mean Corpuscular Hemoglobin 28.9 pg (26-34); Mean Corpuscular Volume 96.4 fl (80-100); Mean Platelet Volume 9.2 fl (7.4-10.4); Monocytes Absolute Auto 0.5 K/mm3 (0.1-0.6); Neutrophils Absolute Auto 2.9 K/mm3 (1.3-6.7); Neutrophils Percent Auto 58.8 % (45.5-73.1); Platelet Count Result 312 k/mm3 (150-375); Red Cell Distribution Width 12.9 % (11.5-14.5)
[2024-01-15 06:38] LABS: Alanine Aminotransferase 19 U/L (6-35); Albumin Level 2.8 g/dL (3.5-5.1); Alkaline Phosphatase 107 U/L (38-126); Anion Gap 4 mmol/L (4-12); Aspartate Amino Transferase 20 U/L (14-36); Bilirubin,Total 0.3 mg/dL (0.2-1.3); Blood Urea Nitrogen 12 mg/dL (7-17); Calcium 8.2 mg/dL (8.4-10.2); Carbon Dioxide 21 mmol/L (22-30); Chloride 116 mmol/L (98-107); Estimated CRCL calculation 44 ml/min; Estimated Glomerular Filt Rate > 60; Glucose 76 mg/dL (65-110); Magnesium 1.9 mg/dL (1.6-2.3); Potassium 3.7 mmol/L (3.4-5.0); Sodium 141 mmol/L (137-145)
[2024-01-15] MEDS: polyethylene glycoL 3350 17 GM POWD.PACK PO (08:06)
[2024-01-15] MEDS: DOCUSATE SODIUM 100 MG CAPSULE PO (08:06)
[2024-01-15] MEDS: SULFAMETHOXAZOLE/TRIMETHOPRIM 800/160 MG DS TABLET 1 TAB PO (08:06)
--- NOTE | 2024-01-15 12:34 | WPDPN ---
Progress Note: A&P Assessment and Plan (1) Small bowel obstruction: Code(s): K56.609 - Unspecified intestinal obstruction, unspecified as to partial versus complete obstruction Status: Acute Assessment and Plan: Her episodes of abdominal pain and nausea vomiting may have been due to partial small-bowel obstruction due to adhesions. She has had prior abdominal surgery so is expected she would have adhesions. However there is no transition point on imaging. She also has been somewhat constipated since her hip surgery and so a component of constipation may also be present. I have recommended that she stay in a good stool regimen with natural remedies such as prunes and extra fiber. Additional fiber supplements or also recommended with good hydration. If that does not work to have a bowel movement daily or [id number] then advancing to stool softeners and MiraLax was recommended. We will go ahead advance her diet to regular diet now. She tolerates she can be discharged home later today. She will not need to follow up me in the office. Subjective Date/time seen: 01/15/24 12:34 Interval history: Doing well today. She has had 5 bowel movements since last evening after getting a suppository. Just had a water-soluble small bowel series yesterday showing no evidence of some mechanical small bowel obstruction although some mildly dilated loops of small bowel without transition point was seen suggested possible ileus. She denies any abdominal pain today. White blood cell count today is back down to normal at 5000. Exam GI: Other: Abdomen soft and nondistended. Nontender to palpation. Exam is benign. Objective Data Vital Signs Vital Signs: Vital Signs - 24 hr 01/14/24 14:00 01/14/24 20:51 01/14/24 20:12 Temperature 36.2 C L 36.5 C Pulse Rate 78 86 Respiratory Rate 16 16 Blood Pressure 144/58 H 153/51 H Pulse Oximetry 97 99 Oxygen Delivery Room Air 01/15/24 05:21 01/15/24 08:00 Temperature 36.6 C Pulse Rate 76 Respiratory Rate 16 Blood Pressure 127/57 L Pulse Oximetry 97 Oxygen Delivery Room Air Intake/Output Intake/Output: Intake & Output 01/12/24 01/13/24 01/14/24 01/15/24 23:59 23:59 23:59 23:59 Intake Total 1000 1000 6 Output Total 3 Balance [id number] Meds/Results Medications: Active Medications Generic Name Dose Route Start Last Admin Trade Name Freq PRN Reason Stop Dose Admin Docusate Sodium 100 mg 01/14/24 21:00 01/15/24 08:06 Docusate Sodium 100 Mg Capsule PO 100 mg Q12HR DIETER Administration Sodium Chloride 1,000 mls @ 125 mls/hr 01/13/24 23:45 01/15/24 04:14 Normal Saline Iv IV CONT 125 mls/hr .Q8H DIETER Administration Morphine Sulfate 2 mg 01/13/24 23:57 Morphine Sulfate (*Crx) 2 Mg/Ml Inj IV PUSH Q2H PRN Pain Rated 7-10 Ondansetron HCl 4 mg 01/13/24 23:57 Ondansetron Inj 4 Mg/2 Ml Vial IV PUSH Q4H PRN Nausea Polyethylene Glycol 17 gm 01/15/24 09:00 01/15/24 08:06 Polyethylene Glycol 3350 17 Gm Powd.Pack PO 17 gm QAM DIETER Administration Trimethoprim/Sulfamethoxazole 1 tab 01/14/24 21:00 01/15/24 08:06 Sulfamethoxazole/Trimethoprim 800/160 Mg Ds Tablet PO 1 tab Q12HR DIETER Administration Radiology Results: ITS Impressions Abdomen/Pelvis CT 01/13/24 22:03 IMPRESSION: Scattered areas of small bowel dilation may represent ileus or partial obstruction. Abdomen X-Ray 01/13/24 23:49 IMPRESSION: NG tube, in good position. Upper GI and Small Bowel X-Ray 01/14/24 13:40 IMPRESSION: 1. Mildly dilated loops of small bowel with normal transit time to the colon, consistent with adynamic ileus. Labs Labs: Laboratory Results - last 24 hr 01/15/24 05:45 WBC 5.0 RBC 2.80 L Hgb 8.1 L D Hct 27.0 L MCV 96.4 D MCH 28.9 MCHC 30.0 L RDW 12.9 Plt Count 312 MPV 9.2 Immature Gran % (Auto) 0.2 Neut % (Auto) 58.8 Lymph
[2024-01-15 14:00] VITALS: BP 145/54; PULSE 86; RESP 16; TEMP 37.1; O2SAT 100
--- NOTE | 2024-01-15 15:51 | P.PNIM_ITS ---
Progress Note: A&P Assessment and Plan (1) Partial obstruction of small intestine: Code(s): K56.600 - Partial intestinal obstruction, unspecified as to cause Status: Acute Assessment and Plan: 01/14/24: * Presented with abdominal pain, nausea, vomiting over the last 2 days * CT of the abdomen and pelvis shows small bowel dilatation representing ileus versus partial obstruction * NG tube in place * NPO for now * General surgery on board thank for your help * IV fluids * Antiemetics and pain medicine on board * Consider a suppository * Serial KUBs * Await further recommendations from General surgery 01/15/24: * NG tube discontinued by General surgery * Will advance diet as tolerated * Bowel regimen with MiraLax and stool softener * Needs good regimen for home * Encourage ambulation and increase activity (2) Transaminitis: Code(s): R74.01 - Elevation of levels of liver transaminase levels Status: Acute Assessment and Plan: 01/14/24: * AST ALT slightly elevated 38/38 * Continue trend * Most likely reactive to current medical condition 01/15/24: * Liver enzymes are normal * Resolved (3) Iron deficiency anemia: Qualifiers: Iron deficiency anemia type: other iron deficiency Qualified Code(s): D50.8 - Other iron deficiency anemias Code(s): D50.9 - Iron deficiency anemia, unspecified Status: Acute Assessment and Plan: 01/14/24: * Current H&H 11.9/37.4 * On home iron supplement will hold with NPO status * Most likely resolved as her deficiency is most likely related to her hip surgery * Continue trend H&H * Transfuse if hemoglobin less than 7 01/15/24: * Hemoglobin 8.1 * ? Dilutional * Continue iron supplementation * Continue to trend Time Spent With Patient Time with patient: Greater than 35 minutes Subjective Date/time seen: 01/15/24 15:51 Interval history: 01/14/24: Patient is a 83 year old female with a past medical history of colon cancer, GERD, kidney disease, cataracts, appendectomy and previous bowel obstruction who presented to the hospital with abdominal pain, nausea, vomiting, abdominal distention.? Patient recently admitted to the hospital 12/24-05/2024 for a bowel obstruction, and had a hip replacement on 12/18/23.? After her hip replacement she developed a bowel obstruction.? This time she stated that on Friday night she started to have abdominal pain.? This then lead to nausea and vomiting on Friday.? She stated that she has not be able to keep any thing down.? She stated that she took senna and miralax which she stated did not help.? She denies any changes in appetite other than eating less.? She denies any chest pain, shortness of breath, fevers, sweats, chills, diarrhea.? She stated that she has been weaker and having more fatigue over the last day or so.? Currently her pain is 3 to 5/10.? She did state that the NG tube is helped.? Abdomen is soft.? She did state that she is having gas.? She stated that her abdomen is just really sore.? She also stated that this time feels the same as last time. Who is having admission white blood cell count was 10.2, BUN creatinine 19/0.9.? Abdomen pelvis CT showed scattered areas of small bowel dilatation representing ileus versus partial bowel obstruction.? NG tube is been inserted.? Currently on low intermittent suction.? No output noted at this time.? Bowel sounds are very hypoactive bilaterally.? General surgery has been consulted. Patient is being admitted to the hospitalist service as
--- NOTE | 2024-01-15 15:51 | PM.IMPN ---
Progress Note: A&P Assessment and Plan (1) Partial obstruction of small intestine: Code(s): K56.600 - Partial intestinal obstruction, unspecified as to cause Status: Acute Assessment and Plan: 01/14/24: Presented with abdominal pain, nausea, vomiting over the last [address] of the abdomen and pelvis shows small bowel dilatation representing ileus versus partial obstruction NG tube in place NPO for now General surgery on board thank for your help IV fluids Antiemetics and pain medicine on board Consider a suppository Serial KUBs Await further recommendations from General surgery 01/15/24: NG tube discontinued by General surgery Will advance diet as tolerated Bowel regimen with MiraLax and stool softener Needs good regimen for home Encourage ambulation and increase activity (2) Transaminitis: Code(s): R74.01 - Elevation of levels of liver transaminase levels Status: Acute Assessment and Plan: 01/14/24: AST ALT slightly elevated 38/38 Continue trend Most likely reactive to current medical condition 01/15/24: Liver enzymes are normal Resolved (3) Iron deficiency anemia: Qualifiers: Iron deficiency anemia type: other iron deficiency Qualified Code(s): D50.8 - Other iron deficiency anemias Code(s): D50.9 - Iron deficiency anemia, unspecified Status: Acute Assessment and Plan: 01/14/24: Current H&H 11.9/37.4 On home iron supplement will hold with NPO status Most likely resolved as her deficiency is most likely related to her hip surgery Continue trend H&H Transfuse if hemoglobin less than 7 01/15/24: Hemoglobin 8.1 ? Dilutional Continue iron supplementation Continue to trend Time Spent With Patient Time with patient: Greater than 35 minutes Subjective Date/time seen: 01/15/24 15:51 Interval history: 01/14/24: Patient is a 83 year old female with a past medical history of colon cancer, GERD, kidney disease, cataracts, appendectomy and previous bowel obstruction who presented to the hospital with abdominal pain, nausea, vomiting, abdominal distention.? Patient recently admitted to the hospital 12/24-05/2024 for a bowel obstruction, and had a hip replacement on 12/18/23.? After her hip replacement she developed a bowel obstruction.? This time she stated that on Friday night she started to have abdominal pain.? This then lead to nausea and vomiting on Friday.? She stated that she has not be able to keep any thing down.? She stated that she took senna and miralax which she stated did not help.? She denies any changes in appetite other than eating less.? She denies any chest pain, shortness of breath, fevers, sweats, chills, diarrhea.? She stated that she has been weaker and having more fatigue over the last day or so.? Currently her pain is 3 to 5/10.? She did state that the NG tube is helped.? Abdomen is soft.? She did state that she is having gas.? She stated that her abdomen is just really sore.? She also stated that this time feels the same as last time. Who is having admission white blood cell count was 10.2, BUN creatinine 19/0.9.? Abdomen pelvis CT showed scattered areas of small bowel dilatation representing ileus versus partial bowel obstruction.? NG tube is been inserted.? Currently on low intermittent suction.? No output noted at this time.? Bowel sounds are very hypoactive bilaterally.? General surgery has been consulted. Patient is being admitted to the hospitalist service as observation and will most likely require less than 2 midnight stay for workup, treatment, recovery. 01/15/24: Review of Systems Review of Systems: All systems reviewed & are unremarkable except as noted in HPI and below Constitutional: Constitutional: Reports as per HPI and Reports no additional constitutional complaints Eyes: Eyes: Reports as per HPI and Reports no additional eye complaints ENT: Reports system reviewed
--- NOTE | 2024-01-15 18:53 | PM.DS ---
DS: Admitting Diagnosis Discharge Date 01/15/24 Admitting Diagnosis Partial obstruction of small intestine Transaminitis Iron deficiency anemia DS: Discharge Diagnosis Discharge Diagnosis (1) Partial obstruction of small intestine: Code(s): K56.600 - Partial intestinal obstruction, unspecified as to cause Status: Acute (2) Transaminitis: Code(s): R74.01 - Elevation of levels of liver transaminase levels Status: Acute (3) Iron deficiency anemia: Qualifiers: Iron deficiency anemia type: other iron deficiency Qualified Code(s): D50.8 - Other iron deficiency anemias Code(s): D50.9 - Iron deficiency anemia, unspecified Status: Acute DS: Summary Hospital Course Reason for hospitalization: Partial obstruction of small intestine Transaminitis Iron deficiency anemia Hospital Course: This is an 83-year-old female who presented to the hospital on 01/14/2024 with complaints of abdominal pain. Patient was recently admitted to the hospital on 12/25/23 for bowel obstruction had a hip replacement on 12/18/2023. After hip replacement she developed a bowel obstruction. Workup in the hospital include CT of the abdomen pelvis which showed scattered areas of small bowel dilatation representing ileus or partial obstruction. NG tube was placed. Patient had an upper GI and small bowel x-ray on 01/13 which showed mildly dilated loops of small bowel with normal transit time to the colon consistent with adynamic ileus. Patient was given suppository on the night of 01/15/2024 and him had 5 bowel movements since that evening. She was recommended to take stool softeners and MiraLax at home. She is stable for discharge at this time. She will need to follow up with her primary care physician in 1 week. Final diagnosis: Partial obstruction of small intestine, transaminitis Status at Discharge Cognitive/behavioral status at discharge: Alert oriented x4 Functional status at discharge: independent ambulation Overall status at discharge: patient is progressing back to baseline Time Spent with Patient Time attestation: Total time spent providing and/or coordinating discharge services: Time spent: Greater than 30 minutes Exam Narrative: General: In no acute distress, well nourished Head: atraumatic, no encephalopathy Eyes: EOMI, PERRLA, sclera clear ENT: moist mucous membranes, nasal passages clear Neck: supple, no JVD, no adenopathy, trachea midline Cardiac: Normal S1 and S2. No murmur, gallops or friction rubs, peripheral pulses intact. Respiratory: Lungs clear to auscultation, no adventitious lung sounds, currently on room air Gastrointestinal: soft, non-distended, non-tender, normoactive bowel sounds. Had multiple BM's today : voiding without difficulty. Extremities: moves all extremities well, no edema, good ROM, strength 5/5 Skin: clean, dry, intact. No wounds or lesions. Neuro: Alert and oriented x4, cranial nerves intact, no neuro deficits. Psych: normal mood, normal affect, interactive DS: Data Data Completed and Pending Completed studies during hospitalization: Upper GI small bowel x-ray Abdomen x-ray Abdomen/pelvis CT Pending studies at discharge: None Labs on day of discharge: Labs from last 24 hours 01/15/24 05:45 WBC 5.0 RBC 2.80 L Hgb 8.1 L D Hct 27.0 L MCV 96.4 D MCH 28.9 MCHC 30.0 L RDW 12.9 Plt Count 312 MPV 9.2 Immature Gran % (Auto) 0.2 Neut % (Auto) 58.8 Lymph % (Auto) 22.6 Ponce % (Auto) 9.0 H Eos % (Auto) 8.2 H Baso % (Auto) 1.2 Lymph # (Auto) 1.13 Ponce # (Auto) 0.5 Eos # (Auto) 0.4 H Baso # (Auto) 0.1 Abs Immat Gran (auto) 0.01 Absolute Neuts (auto) 2.9 Absolute Nucleated RBC 0.000 Nucleated RBC % 0.0 Sodium 141 Potassium 3.7 Chloride 116 H Carbon Dioxide 21 L Anion Gap 4 BUN 12 D Creatinine 0.70 Estim Creat Clear Calc 44 Estimated GFR > 60 Glucose 76 Calcium 8.2 L Magnesium 1.9 Total Bilirubin 0
== END 2024-01-15 18:20 | disposition home or self-care (01) | DRG 389 ==
LOC: ANHED 23:03 → ANH3MEDSUR 01-14 01:00
PROVIDERS: Emergency Medicine; Nurse Practitioner; Admitting Provider Internal Medicine; Emergency Provider Emergency Medicine; PCP Family Medicine; Visit Provider Nurse Practitioner Acute Care
DX: K56.600 Partial intestinal obstruction, unspecified as to cause (principal); N39.0 Urinary tract infection, site not specified; K56.7 Ileus, unspecified; K21.9 Gastro-esophageal reflux disease without esophagitis; D50.9 Iron deficiency anemia, unspecified; R74.01 Elevation of levels of liver transaminase levels; Z96.642 Presence of left artificial hip joint; Z85.038 Personal history of other malignant neoplasm of large intestine
CPT/HCPCS: 36415; 74177; 74250; 80053; 81001; 83690; 83735; 85025; 87077; 87086; 87088; 87186; 96361; 96374; 96375; 99285; A9270; G0378; J2270; J2405; J7030; Q9967

== ENCOUNTER 2024-01-22 13:46 | Outpatient (CLI) | payer MEDICARE, OTHER, SELFPAY ==
[2024-01-22 14:28] LABS: Anion Gap 6 mmol/L (4-12); Blood Urea Nitrogen 12 mg/dL (7-17); Calcium 9.2 mg/dL (8.4-10.2); Carbon Dioxide 26 mmol/L (22-30); Chloride 108 mmol/L (98-107); Estimated Glomerular Filt Rate 60; Glucose 99 mg/dL (65-110); Potassium 3.9 mmol/L (3.4-5.0); Sodium 140 mmol/L (137-145)
== END 2024-01-22 13:47 | disposition home or self-care (01) ==
LOC: ANHLAB 13:48
PROVIDERS: PCP Family Medicine; Visit Provider Physician Assistant Medical
DX: M06.9 Rheumatoid arthritis, unspecified (principal); K56.609 Unspecified intestinal obstruction, unspecified as to partial versus complete obstruction
CPT/HCPCS: 36415; 80048

== ENCOUNTER 2024-01-23 08:15 | Outpatient (CLI) | payer MEDICARE, OTHER, SELFPAY ==
--- NOTE | ~2024-01-23 | US_ITS ---
EXAMINATION: US venous doppler [facility] DATE: 01/23/2024 08:53 INDICATION: Left lower limb pain and swelling. Other specified soft tissue disorders. TECHNIQUE: Grayscale ultrasound images without and with compression and Doppler ultrasound images of the bilateral lower extremity veins were obtained. COMPARISON: None. FINDINGS: The visualized portions of right common femoral vein, profunda (deep) femoral vein, femoral vein, pop liteal vein, peroneal veins, posterior tibial veins, and greater saphenous vein outflow are patent. The visualized portions of left femoral vein, popliteal vein, posterior tibial veins are patent. Ther e is thrombus in left common femoral vein, profunda femoral vein, and peroneal and greater saphenous veins. IMPRESSION: 1. Deep vein thrombosis involving the left common femoral, profunda femoral, and peroneal veins. 2. Superficial vein thrombosis involving the left greater saphenous vein. Reviewed, dictated and finalized at location A. IMPRESSION: 1. Deep vein thrombosis involving the left common femoral, profunda femoral, a nd peroneal veins. 2. Superficial vein thrombosis involving the left greater saphenous vein.
== END 2024-01-23 08:16 | disposition home or self-care (01) ==
LOC: ANHIMG 08:16
PROVIDERS: PCP Family Medicine; Visit Provider Nurse Practitioner Family
DX: I82.412 Acute embolism and thrombosis of left femoral vein (principal); I82.452 Acute embolism and thrombosis of left peroneal vein; I82.812 Embolism and thrombosis of superficial veins of left lower extremity
CPT/HCPCS: 93970

== ENCOUNTER 2024-02-03 12:21 | Outpatient (CLI) | payer MEDICARE, OTHER, SELFPAY ==
--- NOTE | ~2024-02-03 | XR_ITS ---
XR hip LT 2V w AP pelvis Ordering provider: Eugenio Lopez MD History: . 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 Comparison: December 18, 2023 FINDINGS: BONES: No acute fracture or dislocation. HIP JOINT SPACES: Left hip arthroplasty. Right hip osteoarthritic changes. SACROILIAC JOINT SPACES/LUMBAR SPINE: Left sacroiliitis. Mild degenerative changes of the visualized lower lumbar spine. PUBIC SYMPHYSIS: Pubic symphysitis. SOFT TISSUES: Normal. IMPRESSION: No acute osseous abnormality pelvis. Left hip arthroplasty. Left sacroiliitis. Reviewed, dictated and finalized at location A.
== END 2024-02-03 12:22 | disposition home or self-care (01) ==
LOC: ANHIMG 12:25
PROVIDERS: PCP Family Medicine; Visit Provider Orthopaedic Surgery
DX: Z96.642 Presence of left artificial hip joint (principal); M53.3 Sacrococcygeal disorders, not elsewhere classified
CPT/HCPCS: 73502

== ENCOUNTER 2024-06-29 13:45 | Outpatient (CLI) | payer MEDICARE, OTHER, SELFPAY ==
--- NOTE | ~2024-06-29 | US_ITS ---
EXAMINATION: US venous doppler [facility] DATE: 06/29/2024 14:30 INDICATION: Other specified soft tissue disorders. TECHNIQUE: Grayscale ultrasound images without and with compression and Doppler ultrasound images of the bilateral lower extremity veins were obtained. COMPARISON: None. FINDINGS: The visualized portions of right common femoral vein, profunda (deep) femoral vein, femoral vein, pop liteal vein, posterior tibial veins, peroneal veins, gastrocnemius vein and greater saphenous vein ou tflow are patent. The visualized portions of left common femoral vein, profunda femoral vein, femoral vein, popliteal v ein, posterior tibial veins, peroneal veins, gastrocnemius vein and greater saphenous vein outflow ar e patent. IMPRESSION: 1. No deep venous thrombosis in either lower limb. Reviewed, dictated and finalized at location B. OR CARE ASSISTANT
== END 2024-06-29 13:46 | disposition home or self-care (01) ==
LOC: ANHIMG 13:46
PROVIDERS: PCP Family Medicine; Visit Provider Nurse Practitioner Family
DX: M79.89 Other specified soft tissue disorders (principal)
CPT/HCPCS: 93970

== ENCOUNTER 2025-06-07 15:46 | Outpatient (CLI) | payer MEDICARE, OTHER, SELFPAY ==
[2025-06-07 16:09] LABS: Hematocrit 33.0 % (37.0-47.0); Hemoglobin 9.8 g/dL (12.0-15.0); Immature Granulocyte Percent A 0.2 % (0-0.5); Lymphocytes Absolute Auto 1.32 K/mm3 (0.9-3.2); Mean Corpuscular HGB Conc 29.7 g/dl (32-36); Mean Corpuscular Hemoglobin 24.7 pg (26-34); Mean Corpuscular Volume 83.1 fl (80-100); Nucleated Red Blood Cells Absolute Auto 0.000 K/mm3 (0.0-0.012); Nucleated Red Blood Cells Perc 0.0 % (0.0-0.2); Platelet Count Result 375 k/mm3 (150-375); Red Blood Count 3.97 M/mm3 (4.2-5.4); White Blood Count 5.2 K/mm3 (4.5-10.0)
[2025-06-07 16:22] LABS: Alanine Aminotransferase 13 U/L (6-35); Albumin Level 4.1 g/dL (3.5-5.1); Alkaline Phosphatase 73 U/L (38-126); Anion Gap 7 mmol/L (4-12); Aspartate Amino Transferase 28 U/L (14-36); Bilirubin,Total 0.2 mg/dL (0.2-1.3); Blood Urea Nitrogen 19 mg/dL (7-17); Calcium 9.4 mg/dL (8.4-10.2); Carbon Dioxide 27 mmol/L (22-30); Chloride 104 mmol/L (98-107); Estimated Glomerular Filt Rate 51; Glucose 108 mg/dL (65-110); Potassium 4.1 mmol/L (3.4-5.0); Sodium 138 mmol/L (137-145); Total Protein 7.1 g/dL (6.3-8.2)
[2025-06-07 16:23] LABS: Iron 70 ug/dL (37-170)
[2025-06-07 16:32] LABS: Percent Iron Saturation 17 % (20-50)
[2025-06-07 16:37] LABS: Hypochromasia 1+; Ovalocytes 1+; Schistocytes None Seen
== END 2025-06-07 15:47 | disposition home or self-care (01) ==
PROVIDERS: PCP Family Medicine; Visit Provider Physician Assistant Medical
DX: R01.1 Cardiac murmur, unspecified (principal); D50.8 Other iron deficiency anemias; R56.9 Unspecified convulsions; R47.01 Aphasia; R42 Dizziness and giddiness
CPT/HCPCS: 36415; 80053; 83540; 83550; 85025

== ENCOUNTER 2025-06-08 10:32 | Outpatient (CLI) | payer MEDICARE, OTHER, SELFPAY ==
--- NOTE | ~2025-06-08 | XR_ITS ---
EXAMINATION: XR chest 2V 06/08/2025 12:13 INDICATION: Cerebral infarction PROCEDURE: 2 view chest COMPARISON: 01/05/2010 FINDINGS: The lungs are clear. The cardiomediastinal silhouette is within normal limits. There are no pleural effusions. There is no pneumothorax suspected. Chronic right basilar scarring. IMPRESSION: 1: NO ACUTE CARDIOPULMONARY DISEASE. Reviewed, dictated and finalized at location O.
--- NOTE | ~2025-06-08 | MR_ITS ---
EXAMINATION: MR brain/brain stem wo/w con DATE: 06/08/2025 11:15 INDICATION: Aphasia. TECHNIQUE: Magnetic resonance imaging (MRI) of the brain and brainstem was performed without and with 12 mL MultiHance intravenous contrast. COMPARISON: None. FINDINGS: There are 2 small acute infarcts in right frontoparietal region. There are scattered areas of nonspecific increased T2-weighted signal intensity in the cerebral white matter. There is no intracranial hemorrhage or abnormal mass lesion. The ventricles are normal in size. There is mucosal thickening in the paranasal sinuses. There are likely changes of ocular lens replacement surgeries. The mastoid air cells are normal. IMPRESSION: 1. Two small acute infarcts in right frontoparietal region. 2. Mild nonspecific cerebral white matter disease, which likely represents chronic small vessel ischemic disease. Reviewed, dictated and finalized at location E. IMPRESSION: 1. Two small acute infarcts in right frontoparietal region. 2. Mild nonspecific cerebral white matter disease, which likely represents software applications designer brandi small vessel ischemic disease.
--- NOTE | 2025-06-08 12:19 | ECG_ITS ---
Test Date: 2025-06-08 12:24:25 Measurements Intervals [place] Rate: 80 P: 69 MD: 183 QRS: -19 QRSD: 89 T: 66 QT: 366 QTc: 423 Interpretive Statements SINUS RHYTHM CANNOT R/O SEPTAL INFARCT, AGE INDETERMINATE BASELINE ARTIFACT- I, II, III, AVR, AVL, AVF, V2-V6 ABNORMAL ECG No previous ECG available for comparison Electronically Signed On 06-08-2025 12:48:08 CDT by Josh Mustafa D.O.
--- OUTSIDE RECORDS SUMMARY | 2025-06-08 13:01 | XMS_ITS | Clinical Summary ---
Author Organization [facility] Address [facility] [place] [address] Care Team Providers Care Director Of Design Name Role Phone None, Provider MD Primary Care Provider Unavaila ble Allergies No known active allergies Medications ENBREL SURECLICK 50 MG/ML Solution Auto-injector injection 11/21/2020 Active ibuprofen 600 MG tablet Active LOTEMAX SM 0.38 % Gel 11/07/2020 Active methocarbamol 500 MG tablet Active omeprazole EC 20 MG Tab EC tablet Act ely trimethoprim-polym yxin b ophthalmic solution 11/07/2020 Active Active Problems No known active problems Immunizations Immunization Administration Dates Next Due Fluzone High Dose - >Age 65 (Prefilled Syringe) 05/14/2019,05/15/2018,05/12/2017,2015,05/22/2015 Influenza (Generic) 05/22/2016,05/18/2015 Influenza Adult (Generic) 05/03/2020,05/18/2015, 05/30/2014 PFIZER COVID-19 (ORIGINAL FORMULATION, PURPLE CAP) mRNA, LNP-S, PF, 30 MCG/0.3 ML DOSE 11/04/2020,10/13/2020 Pneumococcal (Pneumovax 23) 05/27/2016 Pneumococcal (Prevnar 13) 05/22/2015,05/18/2015 Tdap (Generic) 12/21/2014 Family History Medical History Relation Comments Glaucoma Mother Relation Status Comments Mother Social History Tobacco Use Types Packs/Day Years Used Date Smoking Tobacco: Never Smokeless Tobacco: Never Alcohol Use Standard Drinks/Week Comments Never 0 (1 standard drink = 0.6 oz pur e alcohol) AUDIT-C Answer Date Recorded Q1: How often do you have a drink containing alc ohol? Never 11/22/2020 Average Number of Drinks Not on file 021 Frequency of Binge Drinking Not on file 02/2021 PHQ-2 Answer Date Recorded PHQ-2 Score - If the patient scores above 3, please move on to questions 3-9 0 11/22/2020 Comments No Sex and Gender Information Value Date Recorded Sex Assigned at Not on file Legal Sex Female 7:07 PM CDT Gender Identity Not on file Sexual Orientation Not on file Last Filed Vital Signs Vital Sign Reading Time Taken Comments Blood Pressure 163/52 07/11/2021 10:19 AM RECREATION COORDINATOR Pulse 82 07/11/2021 10:19 AM RECREATION COORDINATOR Temperature 35.9 C (96.6 F) 07/11/2021 10:19 AM RECREATION COORDINATOR Respiratory Rate 18 07/11/2021 10:19 AM RECREATION COORDINATOR Oxygen Saturation 98% 07/11/2021 10:19 AM RECREATION COORDINATOR Inhaled Oxygen Concentration - - Weight 59 kg (130 lb) 07/11/2021 10:19 AM RECREATION COORDINATOR Height 160 cm (5' 3) 07/11/2021 10:19 AM RECREATION COORDINATOR Body Mass Index 23.03 07/11/2021 10:19 AM RECREATION COORDINATOR Plan of Treatment Health Maintenance Due Date Last Done Comments Zoster Vaccines (1 of 2) 1991 Annual Medicare Wellness Visit 2006 Dexa Scan (General) 2006 RSV Immunization or 60+ Years (1 - 1-dose 75+ series) 2016 DTaP, Tdap and Td Vaccines (2 - Td or Tdap) 12/21/2024 12/21/2014 COVID-19 Vaccine ( - season) 2025 11/04/2020, 10/13/2020 Influenza Adult (#1) 2025 05/03/2020, 05/14/2019, 05/15/2018, Additional history exists Pneumococcal Vaccine: 50+ Years Completed 05/27/2016, 05/22/2015, 05/18/2015 Hepatitis A Vaccines Aged Out No long er eligible based on patient's age to complete this topic Meningococcal B Vaccine Aged Out No l onger eligible based on patient's age to complete this topic Meningococcal Vaccine Aged Out No mervat andi eligible based on patient's age to complete this topic RSV Immunizations Under 20 Months Aged Out No longer eligible based on patient's age to complete this topic Insurance MEDICARE [facility] Care Teams Director Of Design Relationship Specialty Start Date End Date None, Provider, PCP - General UNKNOWN PHYSICIAN SPECIALTY 07/18/23
== END 2025-06-08 10:33 | disposition home or self-care (01) ==
PROVIDERS: PCP Family Medicine; Visit Provider Physician Assistant Medical
DX: R47.01 Aphasia (principal); R56.9 Unspecified convulsions; R42 Dizziness and giddiness; I63.9 Cerebral infarction, unspecified; R01.1 Cardiac murmur, unspecified; R90.82 White matter disease, unspecified
CPT/HCPCS: 70553; 71046; 93005; A9577

== ENCOUNTER 2025-06-29 08:17 | Outpatient (CLI) | payer MEDICARE, OTHER, SELFPAY ==
--- NOTE | 2025-06-29 09:07 | ECHO_ITS ---
Patient Info Name: Maryjane Menchaca Age: 84 years : 1940 Gender: Female Ht: 63 in Wt: 125 lbs BSA: 1.59 m2 HR: 77 bpm BP: 151 / 72 mmHg Heart Rhythm: Sinus Rhythm Technical Quality: Good Exam Date: 06/29/2025 9:09 AM Patient Status: O Admit Date: 06/29/2025 Exam Type: CA echo doppler color flow Complete two-dimensional, color flow and Doppler transthoracic echocardiogram is performed. Paste Plant Supervisor: Maribeth Low Attending Provider: Anamaria Hawkins Summary 1. Complete two-dimensional, color flow and Doppler transthoracic echocardiogram is performed. 2. Left ventricular chamber dimension is normal. 3. Ventricular septum is sigmoid shaped. No resting LVOT obstruction. 4. Left ventricular systolic function is normal, estimated at 60-65. 5. The left ventricular diastolic function is grade I diastolic dysfunction. 6. E/e' 15 is elevated. 7. Left atrial chamber dimension is mildly enlarged. 8. There is moderate aortic valve sclerosis. 9. There is mild aortic valve stenosis with a peak velocity of 185 cm/s, mean gradient of 7 mmHg, and aortic valve area of 1.9 cm2. 10. The mitral valve has a mildly calcified annulus. 11. There is mild mitral valve regurgitation. 12. There is mild tricuspid valve regurgitation. 13. No pulmonary hypertension, estimated pulmonary arterial systolic pressure is 27 mmHg. Left Ventricle E/e' 15 is elevated. Left ventricular chamber dimension is normal. Left ventricular systolic function is normal, estimated at 60-65. The left ventricular diastolic function is grade I diastolic dysfunction. Ventricular septum is sigmoid shaped. No resting LVOT obstruction. Right Ventricle Right ventricular chamber dimension is normal. Right ventricular systolic function is normal. Left Atria Left atrial chamber dimension is mildly enlarged. Right Atria Right atrial chamber dimension is normal. Aortic Valve The aortic valve is trileaflet. There is moderate aortic valve sclerosis. There is mild aortic valve stenosis with a peak velocity of 185 cm/s, mean gradient of 7 mmHg, and aortic valve area of 1.9 cm2. There is no aortic valve regurgitation. Pulmonic Valve There is no pulmonic regurgitation. Mitral Valve The mitral valve has a mildly calcified annulus. There is no mitral valve stenosis. There is mild mitral valve regurgitation. Tricuspid Valve There is mild tricuspid valve regurgitation. No pulmonary hypertension, estimated pulmonary arterial systolic pressure is 27 mmHg. Pericardium/Pleural There is no pericardial effusion. Inferior Vena Cava Normal inferior vena cava with >50% collapse upon inspiration consistent with normal right atrial pressure, 5 mmHg. Aorta The aortic root size at the sinus of Valsalva is normal. Left Ventricular Outflow Tract Name Value Normal LVOT 2D LVOT Diameter 2.0 cm LVOT Doppler LVOT Peak Velocity 112 cm/s LVOT Peak Gradient 5 mmHg LVOT Mean Gradient 3 mmHg LVOT VTI 26 cm LVOT VTI/AV VTI Ratio 0.6 LVOT Stroke Volume 83 ml LVOT CO 5.2 l/min LVOT CI 3.2 l/min/m2 Pulmonic Valve Name Value Normal RVOT Doppler RVOT Peak Velocity 72 cm/s RVOT Peak Gradient 2 mmHg PV Doppler PV Peak Velocity 98 cm/s PV Peak Gradient 4 mmHg Mitral Valve Name Value Normal MV Diastolic Function MV E Peak Velocity 98 cm/s MV A Peak Velocity 118 cm/s MV E/A 0.8 MV Decel Time (PW) 191 ms MV Annular TDI MV E/e' (Septal) 16.3 MV E/e' (Lateral) 14.4 MV E/e' (Average) 15.4 Tricuspid Valve Name Value Normal TV Regurgitation Doppler TR Peak Velocity 232 cm/s TR Peak Gradient 22 mmHg Estimated PAP/RSVP RA Pressure 5 mmHg <=5 PA Systolic Pressure 27 mmHg <36 RV Systolic Pressure 27 mmHg <36 TV Annular TDI TV Lateral Meredith s' Velocity 10.6 cm/s >=9.5 Aorta Name Value Normal Ascending Aorta Ao Root Diameter (MM) 3.1 cm Ao Root Diam Index (MM) 1.9 cm/m2 Aortic Valve Name Value Normal AV Doppler AV Peak Velocity 185 cm/s AV Peak Gradient 14 mmHg AV Mean Gradient 7 mmHg AV VTI 44 cm AV Area (Cont Eq VTI) 1.9 cm2 >=3.0 AV Area (Cont Eq Pipo) 1.9 cm2 AV DI (Pipo) 0.60 AV Regurgitation 2D LVOT Area 3.2 cm2 Ventricles Name Value Normal LV Dimensions 2D/MM IVS Diastolic Thickness (2D) 0.9 cm 0.6-1.0 LVID Diastole (2D) 4.2 cm 3.8-5.2 LVIW Diastolic Thickness (2D) 0.9 cm 0.6-0.9 LVID Systole (2D) 2.8 cm 2.2-3.5 LVOT Diameter 2.0 cm LV Mass (2D Cubed) 113.13 g 67.00-162.00 LV Mass Index (2D Cubed) 71 g/m2 43-95 Relative Wall Thickness (2D) 0.43 <=0.42 LV Fractional Shortening/Ejection Fraction 2D/MM LV Fractional Shortening (2D) 33 % 27-45 LV EF (2D Teichholz) 62 % LV Diastolic Volume (4C MOD) 49 ml LV EF (4C MOD) 66 % LV Diastolic Volume (2C MOD) 60 ml LV EF (2C MOD) 69 % LV Diastolic Volume (BP MOD) 60 ml 46-106 LV Diastolic Volume Index (BP MOD) 38 ml/m2 29-61 LV Systolic Volume (BP MOD) 18 ml 14-42 LV Systolic Volume Index (BP MOD) 11 ml/m2 8-24 LV EF (BP MOD) 70 % 54-74 LV Diastolic Length (4C) 6.0 cm LV Systolic Length (4C) 5.1 cm LV Stroke Volume (4C MOD) 32 ml Atria Name Value Normal LA Dimensions LA Dimension (MM) 3.5 cm 2.7-3.8 LA Volume (4C A-L) 66 ml LA Volume (BP A-L) 73 ml RA Dimensions RA Area (4C) 14.3 cm2 <=18.0 Report Signatures
== END 2025-06-29 08:18 | disposition home or self-care (01) ==
LOC: ANHCARD 08:20
PROVIDERS: PCP Family Medicine; Visit Provider Physician Assistant Medical
DX: R01.1 Cardiac murmur, unspecified (principal); I35.8 Other nonrheumatic aortic valve disorders; I35.0 Nonrheumatic aortic (valve) stenosis; I08.1 Rheumatic disorders of both mitral and tricuspid valves; R74.01 Elevation of levels of liver transaminase levels
CPT/HCPCS: 93306